=== PATIENT | male | born 1980 | race Two or more races ===

== ENCOUNTER 2025-03-01 00:06 | Inpatient (IN) | payer OTHER ==
[~2025-03-01] VITALS: Ht 172.7 cm; Wt 126.1 kg
--- NOTE | 2025-03-01 01:00 | ED.PDOC ---
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 Patient reports chills but denies any fever. Patient had a bowel movement earlier this day. Denies constipation or diarrhea. Denies any urinary symptoms. Social history: Quit smoking 3 weeks back, has been a smoker for the past 5 years, denies drinking or drug use. Lives with Patient seen and examined, lower abdominal tenderness. CT abdomen shows 7 mm obstructing ureteral calculus, with mild hydronephrosis. Five hundred saline bolus followed by 1 L NS at 100 cc/hour. IM ketorolac injection given. IV Zofran. Chief Complaint: Abdominal Pain Time Seen by MD: 00:24 Allergies: Coded Allergies: No Known Drug Allergy (Verified Allergy, Unknown, 03/01/25) Mode of Arrival: Ambulatory Past Medical History PAST MEDICAL HISTORY: Denies Past Medical History (Other): Hypertension Surgical History: Denies all surgeries Constitutional: reports: chills EENTM: denies: blurred vision, double vision, ear bleeding, ear discharge, ear drainage, ear pain, ear ringing, eye pain, eye redness, hearing loss, mouth pain, mouth swelling, nasal discharge, nose bleeding, nose congestion, nose pain, photophobia, tearing, throat pain, throat swelling, voice changes, others Respiratory: denies: cough, hemoptysis, orthopnea, SOB at rest, shortness of breath, SOB with excertion, stridor, wheezing, others Cardiovascular: denies: chest pain, dizzy spells, diaphoresis, Dyspnea on exertion, edema, irregular heart beat, left arm pain, lightheadedness, palpitations, PND, syncope, others Gastrointestinal: reports: abdominal pain Genitourinary: denies: burning, dysuria, flank pain, frequency, hematuria, incontinence, penile discharge, penile sore, pain, testicle pain, testicle swelling, urgency, others Musculoskeletal: denies: back pain, gout, joint pain, joint swelling, muscle pain, muscle stiffness, neck pain, others Integumetry: denies: bruises, change in color, change in hair/nails, dryness, laceration, lesions, lumps, rash, wounds, others Allergic/Immunocompromised: denies: Difficulty Healing, Frequent Infections, Hives, Itching, others Hematologic/Lymphatic: denies: anemia, blood clots, easy bleeding, easy bruising, swollen glands, others Endocrine: denies: excessive hunger, excessive sweating, excessive thirst, excessive urination, flushing, intolerance to cold, intolerance to heat, unexplained weight gain, unexplained weight loss, others Psychiatric: denies: anxiety, bipolar disorder, depression, hopeless, panic disorder, schizophrenia, sleepless, suicidal, others Physical Exam General Appearance: Moderate Distress, Normal HEENT: Normal ENT Inspection, Pharynx Normal, TMs Normal Neck: Full Range of Motion, Non-Tender, Normal, Normal Inspection Respiratory: Chest Non-Tender, Lungs Clear, No Accessory Muscle Use, No Respiratory Distress, Normal Breath Sounds Cardiovascular: No Edema, No JVD, No Murmur, No Gallop, Normal Peripheral Pulses, Regular Rate/Rhythm Breast Exam: Deferred Gastrointestinal: No Pulsatile Mass, Normal Bowel Sounds, Soft, Suprapubic, Tenderness Genitalia: Deferred Pelvic: Deferred Rectal: Deferred Extremities: No calf tenderness, Normal capillary refill, Normal inspection, Normal range of motion, Non-tender, No pedal edema Musculoskeletal : Apperance: Normal 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 Was a procedure done?: No Differential Dx Considerations may include: Pancreatitis/nephrolithiasis/ureterolithiasis/colitis/appendicitis X-Ray, Labs, Meds, VS Vital Signs Date Time Temp Pulse Resp B/P (MAP) Pulse Ox O2 Delivery O2 Flow Rate FiO2 03/01/25 02:18 Room Air* 0 21 03/01/25 02:13 65 19 170/102 03/01/25 01:55 97.8 66 19 170/102 (124) 97 97.8 03/01/25 00:46 65 03/01/25 00:08 96.0 70 24 111/75 98 96.0 Lab Test 03/01/25 01:50 03/01/25 00:57 Range/Units Urine Color Yellow Yellow Urine Clarity Clear Clear Urine pH 5.5 5.0-9.0 Urine Specific [place] 1.038 H 1.001-1.035 Urine Protein 1+ H Negative Urine Ketones 1+ H Negative Urine Blood 3+ H Negative /uL Urine Nitrite Negative Negative Urine Bilirubin Negative Negative Urine Urobilinogen Normal Negative mg/dL Urine Leukocyte Esterase Negative Negative /uL Urine RBC 32 0 - 3 /hpf Urine Microscopic WBC 2 0-3 /HPF Urine Squamous Epithelial Cells Few <5 /hpf Urine Bacteria None seen None Seen /hpf Urine Mucus Few None Seen Urine Glucose Normal Normal mg/dL Urine Opiates Screen Neg NEGATIVE Urine Fentanyl Screen Neg NEGATIVE Urine Barbiturates Screen Neg NEGATIVE Urine Phencyclidine Screen Neg NEGATIVE Urine Amphetamines Screen Neg NEGATIVE Urine Benzodiazepines Screen Neg NEGATIVE Urine Cocaine Screen Neg NEGATIVE Urine Cannabinoids Screen Pos NEGATIVE White Blood Count 13.9 H 4.4-10.8 10^3/uL Red Blood Count 5.15 4.5-5.90 10^6/uL Hemoglobin 14.6 13.5-17.5 g/dL Hematocrit 43.6 41.0-53.0 % Mean Corpuscular Volume 84.7 80.0-100.0 fL Mean Corpuscular Hemoglobin 28.3 28.0-32.0 pg Mean Corpuscular Hemoglobin Concent 33.4 32.0-36.0 g/dL Red Cell Distribution Width 14.0 11.8-14.3 % Platelet Count 237 140-450 10^3/uL Mean Platelet Volume 8.3 6.9-10.8 fL Neutrophils (%) (Auto) 84.2 H 37.0-80.0 % Lymphocytes (%) (Auto) 9.8 L 10.0-50.0 % Monocytes (%) (Auto) 5.9 0.0-12.0 % Eosinophils (%) (Auto) 0.0 0.0-7.0 % Basophils (%) (Auto) 0.1 0.0-2.0 % Neutrophils # (Auto) 11.7 H 1.6-8.6 10 ^3/uL Lymphocytes # (Auto) 1.4 0.4-5.4 10 ^3/uL Monocytes # (Auto) 0.8 0-1.3 10 ^3/uL Eosinophils # (Auto) 0 0-0.8 10 ^3/uL Basophils # (Auto) 0 0-0.2 10 ^3/uL Nucleated Red Blood Cells 0.0 % Sodium Level 141 136-145 mmol/L Potassium Level 4.1 3.5-5.1 mmol/L Chloride Level 107 98-107 mmol/L Carbon Dioxide Level 22 20-31 mmol/L Anion Gap 12 5-15 Blood Urea Nitrogen 17 9-23 mg/dL Creatinine 1.20 0.700-1.30 mg/dL Glomerular Filtration Rate Calc 77 >90 mL/min BUN/Creatinine Ratio 14.2 10.0-20.0 Serum Glucose 139 H 74-106 mg/dL Hemoglobin A1c 5.7 <5.7 % A1C Lactic Acid Level 1.3 0.4-2.0 mmol/L Calcium Level 9.2 8.7-10.4 mg/dL Phosphorus Level 2.2 L 2.4-5.1 mg/dL Magnesium Level 1.9 1.6-2.6 mg/dL Total Bilirubin 0.3 0.2-1.0 mg/dL Direct Bilirubin < 0.1 <0.3 mg/dL Aspartate Amino Transferase (AST) 28 13-40 U/L Alanine Aminotransferase (ALT) 51 H 7-40 U/L Alkaline Phosphatase 89 46-116 U/L Total Protein 8.2 5.7-8.2 g/dL Albumin 4.9 H 3.2-4.8 g/dL Lipase 45 12-53 U/L Vitamin B12 Level 372 211-911 pg/mL Thyroid Stimulating Hormone (TSH) 1.88 0.55-4.78 uIU/mL Current Medications Medications (Trade) Dose Ordered Sig/Sunny Route Start Time Stop Time Status Last Admin Morphine Sulfate 1 mg ONCE ONCE IM 03/01/25 00:45 03/01/25 00:46 DC 03/01/25 02:13 Sodium Chloride 500 ml @ 500 mls/hr Q1H ONCE IV 03/01/25 00:45 03/01/25 01:44 DC 03/01/25 02:14 Ondansetron HCl (Zofran) 4 mg ONCE ONCE IM 03/01/25 01:00 03/01/25 01:02 DC 03/01/25 02:13 Tamsulosin HCl (Flomax) 0.4 mg ONCE ONCE PO 03/01/25 02:00 03/01/25 02:01 DC 03/01/25 02:14 Sodium Chloride 1,000 ml @ 100 mls/hr Q10H ONCE IV 03/01/25 02:00 03/01/25 04:19 DC 03/01/25 03:02 Time of 1ST Reevaluation: 01:40 Reevaluation 1ST: Unchanged Patient Education/Counseling: Diagnosis, Treatment Family Education/Counseling: Diagnosis, Treatment SEPSIS Sepsis Screen Date sepsis recognized/suspect: Mar 01, 2025 Time Sepsis recognized/suspect: 0008 Recent Procedure: No On Antibiotic Therapy: No Respiratory Rate >20: Yes Heart Rate >90: No Temp<36 C (96.8 F) or >38.3 C: No SBP <90 or MAP <65 mmHG: No New Acute Mental Status Change: No Is the patient on CPAP, BIPAP,: No Physician Orders Ct Ab Pel Wo Con-No Oral Or Iv (03/01/25 00:38) Complete Blood Count (03/01/25 04:00) Basic Metabolic Panel (03/01/25 04:00) Urine Bacterial Culture (03/01/25 02:43) Vital Signs Date Time Temp Pulse Resp B/P (MAP) Pulse Ox O2 Delivery O2 Flow Rate FiO2 03/01/25 02:18 Room Air* 0 21 03/01/25 02:13 65 19 170/102 03/01/25 01:55 97.8 66 19 170/102 (124) 97 97.8 03/01/25 00:46 65 03/01/25 00:08 96.0 70 24 111/75 98 96.0 Laboratory Tests Test 03/01/25 00:57 Lactic Acid Level 1.3 mmol/L (0.4-2.0) White Blood Count 13.9 10^3/uL (4.4-10.8) H Medications Medications Dose Ordered Sig/Sunny Route Start Time Stop Time Status Last Admin Dose Admin Morphine Sulfate 1 mg ONCE ONCE IM 03/01/25 00:45 03/01/25 00:46 DC 03/01/25 02:13 Ondansetron HCl 4 mg ONCE ONCE IM 03/01/25 01:00 03/01/25 01:02 DC 03/01/25 02:13 Sodium Chloride 500 ml @ 500 mls/hr Q1H ONCE IV 03/01/25 00:45 03/01/25 01:44 DC 03/01/25 02:14 Sodium Chloride 1,000 ml @ 100 mls/hr Q10H ONCE IV 03/01/25 02:00 03/01/25 04:19 DC 03/01/25 03:02 Tamsulosin HCl 0.4 mg ONCE ONCE PO 03/01/25 02:00 03/01/25 02:01 DC 03/01/25 02:14 Departure 1 Departure Time of Disposition: 02:00 Impression: Primary Impression: Ureterolithiasis Additional Impression: Intractable abdominal pain Disposition: 30 STILL A PATIENT Condition: Fair Critical Care Note Critical Care Time?: No Stability Stability form required: BALJIT Gutierrez RESIDENT Mar 01, 2025 01:00
--- NOTE | 2025-03-01 01:22 | DVH ---
Exam: CT CT AB PEL WO CON-NO ORAL OR IV History: lower abd pain nausea and vomiting Comparison Study: None Technique: Multidetector spiral CT of the abdomen was performed from lung bases to pubic symphysis. I maging was performed without IV contrast. Axial, coronal and sagittal multiplanar reformats were obta ined from the axial data set by the technologist. Radiation dose : 1. Abdomen/Pelvis: CTDIvol 27.86 mGy, DLP 1531.96 mGy*cm. Findings: Evaluation of solid organs is limited due to lack of intravenous contrast use. Lung Bases: No acute or significant lung base finding. Normal heart size. No pleural or pericardial e ffusion. Liver: The liver is normal in size. No focal lesions. Gallbladder and biliary Tree: Cholelithiasis noted without secondary findings of cholecystitis or odalis iary obstruction. Spleen: Unremarkable Pancreas: The pancreas is grossly normal in appearance. Adrenal Glands: Unremarkable Kidneys: Obstructing mid to distal left ureteric calculus measuring 7 mm resulting in mild hydronephr osis Bladder: Grossly unremarkable for degree of distention. Bowel: The stomach is grossly normal in appearance. Small bowel and colon are normal in caliber and d istribution. The appendix is not visualized; however, no secondary findings of acute appendicitis blayne ntified. Ascites: Absent Lymphadenopathy: No mesenteric, retroperitoneal or periportal lymphadenopathy. Abdominal wall and Mesentery: Unremarkable. Vasculature: The visualized abdominal aorta is normal in size and caliber. Evaluation of abdominal an d pelvic vessels is limited due to lack of intravenous contrast. Pelvic Organs: Unremarkable Musculoskeletal: No aggressive focal bony lesions, acute fractures or dislocation. IMPRESSION: Obstructing mid to distal left ureteris calculus measuring 7 mm resulting in mild hydronephrosis. Radiation optimization: All CT scans at this facility use at least one of these dose optimization latrell hniques: automated exposure control mA and/or kV adjustment per patient size (includes targeted exam s where dose is matched to clinical indication) or iterative reconstruction.
[2025-03-01 01:24] LABS: Hematocrit 43.6 % (41.0-53.0); Hemoglobin 14.6 g/dL (13.5-17.5); Mean Corpuscular Hemoglobin 28.3 pg (28.0-32.0); Mean Corpuscular Volume 84.7 fL (80.0-100.0); Nucleated Red Blood Cells % 0.0 %
[2025-03-01 01:33] LABS: Chloride 107 mmol/L (98-107); Potassium 4.1 mmol/L (3.5-5.1); Sodium 141 mmol/L (136-145)
[2025-03-01 01:34] LABS: Anion Gap 12 (5-15); Carbon Dioxide 22 mmol/L (20-31)
[2025-03-01 01:35] LABS: Calcium 9.2 mg/dL (8.7-10.4)
[2025-03-01 01:40] LABS: BUN/Creatinine Ratio 14.2 (10.0-20.0); Blood Urea Nitrogen 17 mg/dL (9-23); Lipase 45 U/L (12-53)
[2025-03-01 01:42] LABS: Glucose 139 mg/dL (74-106)
[2025-03-01] MEDS: MORPHINE SULFATE INJ 2 MG/ml SYRG IM ONE (02:13)
[2025-03-01] MEDS: ONDANSETRON HCL 4 MG/2 ML VIAL IM ONE (02:13)
[2025-03-01] MEDS: SODIUM CHLORIDE 0.9% 500 ML IV ONE ×2 (02:14→06:23)
[2025-03-01] MEDS: TAMSULOSIN HYDROCHLORIDE 0.4 MG CAP PO ONE (02:14)
[2025-03-01 02:44] LABS: Urine Protein, UAD 1+ (Negative)
[2025-03-01] MEDS: SODIUM CHLORIDE 0.9% 1,000 ML IV ONE (03:02)
[2025-03-01 03:11] LABS: Cannabinoid Screen, Urine Pos (NEGATIVE)
[2025-03-01 03:12] LABS: Alanine Aminotransferase 51 U/L (7-40); Albumin 4.9 g/dL (3.2-4.8); Alkaline Phosphatase 89 U/L (46-116); Bilirubin, Direct < 0.1 mg/dL (<0.3); Magnesium 1.9 mg/dL (1.6-2.6); Total Protein 8.2 g/dL (5.7-8.2)
[2025-03-01 03:12] LABS: Amphetamine Screen, Urine Neg (NEGATIVE); Barbiturate Scree,Urine Neg (NEGATIVE); Benzodiazephine Screen, Urine Neg (NEGATIVE); Cocaine Screen, Urine Neg (NEGATIVE); Opiate Scree,Urine Neg (NEGATIVE); Phencyclidine Screen, Urine Neg (NEGATIVE)
[2025-03-01 03:13] LABS: Bilirubin, Total 0.3 mg/dL (0.2-1.0)
[2025-03-01] MEDS ORDERED: MORPHINE SULFATE INJ 2 MG/ml SYRG IV PRN (03:15)
--- NOTE | 2025-03-01 04:03 | DVHHPRES ---
History of Present Illness Resident Creating Document: SHELDON JOSE History of Present Illness Mr. Odell is a 45-year-old male with prior medical history of hypertension (however has not taken any medication in the last 6 months due to running out), previous UTIs, who presents today to the ED with chief complaint of abdominal pain. The patient states that at 5:00 p.m. he had sudden onset of tight sharp pain in left flank, 10/10 intensity, radiating to lower left quadrant and left testicle, associated with nausea and vomiting, without relieving factors. He denies hematuria, dysuria, urinary frequency, urinary incontinence, diarrhea, fever, chest pain, and palpitations. Due to persistence of abdominal pain the patient's sought medical attention at the emergency department. On evaluation in the ED, the patient was in distress, with stable vitals. Initial labs were significant for WBCs 13.9 with neutrophilia. UA shows hematuria. UDS positive for cannabis. Abdominal CT shows obstructing mid to distal left ureter calculus measuring 7 mm resulting in mild hydronephrosis. The patient was started on IV fluids, tamsulosin, if he antibiotics, and IV pain regimen. He was admitted for further workup and monitoring Cardiovascular: HTN Past Surgical History: None Family History: DM, Hypertension Smoke: Quit (Smoked 1 pack of cigarettes per day for 20 years) ALCOHOL: none Drugs: Marijuana (Smokes 1 joint a day) Lives: with Family Domestic Violence: Neg Review of Systems Review of Systems Constitutional: Denies weight loss, fever and chills. HEENT: Denies changes in vision and hearing. Respiratory: Denies shortness of breath and cough Cardiovascular: Denies chest discomfort or palpitations GI: Refers flank and LLQ pain, Denies diarrhea : Denies dysuria and urinary frequency, denies hematuria Musculoskeletal: Denies symptoms Skin: Denies rash and pruritus. Neurological: denies dizziness headache vision or hearing problems Allergies: Coded Allergies: No Known Drug Allergy (Verified Allergy, Unknown, 03/01/25) Medications Current Medications Medications Dose Ordered Sig/Sunny Route Start Time Stop Time Status Last Admin Dose Admin Enoxaparin Sodium 40 mg DAILY SC 03/01/25 10:00 Morphine Sulfate 2 mg Q4HPRN PRN IV 03/01/25 03:15 Tamsulosin HCl 0.4 mg QPM PO 03/01/25 18:00 Ceftriaxone Sodium 50 ml @ 100 mls/hr DAILY@09 IV 03/02/25 09:00 Pantoprazole Sodium 40 mg DAILY IV 03/02/25 10:00 Exam Vital Signs Vital Signs Date Time Temp Pulse Resp B/P (MAP) Pulse Ox O2 Delivery O2 Flow Rate FiO2 03/01/25 02:18 Room Air* 0 21 03/01/25 02:13 65 19 170/102 03/01/25 01:55 97.8 97 97.8 Exam Patient lying in bed, in mild acute distress General: Lucid, afebrile, mucosae are moist Cardiovascular: Normal S1 and S2. No murmurs, gallops or rubs Respiratory: Normal ventilation mechanics. Clear lung sounds on auscultation Abdomen: Soft, mild tenderness on superficial palpation in left lower quadrant rest of abdomen nontender, no organomegaly, normal bowel sounds. MSK/skin: Mobilizes 4 limbs. Skin is dry and warm : Negative CVA tenderness Neurological: Oriented in 3 spheres. No motor no sensitive deficits. Pupils are isocoric and reactive Labs/Xrays Labs Test 03/01/25 01:50 03/01/25 00:57 Range/Units Urine Color Yellow Yellow Urine Clarity Clear Clear Urine pH 5.5 5.0-9.0 Urine Specific [place] 1.038 H 1.001-1.035 Urine Protein 1+ H Negative Urine Ketones 1+ H Negative Urine Blood 3+ H Negative /uL Urine Nitrite Negative Negative Urine Bilirubin Negative Negative Urine Urobilinogen Normal Negative mg/dL Urine Leukocyte Esterase Negative Negative /uL Urine RBC 32 0 - 3 /hpf Urine Microscopic WBC 2 0-3 /HPF Urine Squamous Epithelial Cells Few <5 /hpf Urine Bacteria None seen None Seen /hpf Urine Mucus Few None Seen Urine Glucose Normal Normal mg/dL Urine Opiates Screen Neg NEGATIVE Urine Fentanyl Screen Neg NEGATIVE Urine Barbiturates Screen Neg NEGATIVE Urine Phencyclidine Screen Neg NEGATIVE Urine Amphetamines Screen Neg NEGATIVE Urine Benzodiazepines Screen Neg NEGATIVE Urine Cocaine Screen Neg NEGATIVE Urine Cannabinoids Screen Pos NEGATIVE White Blood Count 13.9 H 4.4-10.8 10^3/uL Red Blood Count 5.15 4.5-5.90 10^6/uL Hemoglobin 14.6 13.5-17.5 g/dL Hematocrit 43.6 41.0-53.0 % Mean Corpuscular Volume 84.7 80.0-100.0 fL Mean Corpuscular Hemoglobin 28.3 28.0-32.0 pg Mean Corpuscular Hemoglobin Concent 33.4 32.0-36.0 g/dL Red Cell Distribution Width 14.0 11.8-14.3 % Platelet Count 237 140-450 10^3/uL Mean Platelet Volume 8.3 6.9-10.8 fL Neutrophils (%) (Auto) 84.2 H 37.0-80.0 % Lymphocytes (%) (Auto) 9.8 L 10.0-50.0 % Monocytes (%) (Auto) 5.9 0.0-12.0 % Eosinophils (%) (Auto) 0.0 0.0-7.0 % Basophils (%) (Auto) 0.1 0.0-2.0 % Neutrophils # (Auto) 11.7 H 1.6-8.6 10 ^3/uL Lymphocytes # (Auto) 1.4 0.4-5.4 10 ^3/uL Monocytes # (Auto) 0.8 0-1.3 10 ^3/uL Eosinophils # (Auto) 0 0-0.8 10 ^3/uL Basophils # (Auto) 0 0-0.2 10 ^3/uL Nucleated Red Blood Cells 0.0 % Sodium Level 141 136-145 mmol/L Potassium Level 4.1 3.5-5.1 mmol/L Chloride Level 107 98-107 mmol/L Carbon Dioxide Level 22 20-31 mmol/L Anion Gap 12 5-15 Blood Urea Nitrogen 17 9-23 mg/dL Creatinine 1.20 0.700-1.30 mg/dL Glomerular Filtration Rate Calc 77 >90 mL/min BUN/Creatinine Ratio 14.2 10.0-20.0 Serum Glucose 139 H 74-106 mg/dL Hemoglobin A1c 5.7 <5.7 % A1C Lactic Acid Level 1.3 0.4-2.0 mmol/L Calcium Level 9.2 8.7-10.4 mg/dL Phosphorus Level 2.2 L 2.4-5.1 mg/dL Magnesium Level 1.9 1.6-2.6 mg/dL Total Bilirubin 0.3 0.2-1.0 mg/dL Direct Bilirubin < 0.1 <0.3 mg/dL Aspartate Amino Transferase (AST) 28 13-40 U/L Alanine Aminotransferase (ALT) 51 H 7-40 U/L Alkaline Phosphatase 89 46-116 U/L Total Protein 8.2 5.7-8.2 g/dL Albumin 4.9 H 3.2-4.8 g/dL Lipase 45 12-53 U/L Vitamin B12 Level 372 211-911 pg/mL Thyroid Stimulating Hormone (TSH) 1.88 0.55-4.78 uIU/mL SEPSIS Sepsis Screen Date sepsis recognized/suspect: Mar 01, 2025 Time Sepsis recognized/suspect: 000 Recent Procedure: No On Antibiotic Therapy: No Respiratory Rate >20: Yes Heart Rate >90: No Temp<36 C (96.8 F) or >38.3 C: No SBP <90 or MAP <65 mmHG: No New Acute Mental Status Change: No Is the patient on CPAP, BIPAP,: No Physician Orders Ct Ab Pel Wo Con-No Oral Or Iv (03/01/25 00:38) Electrocardigram (03/01/25 00:58) Sodium Chloride 0.9% (03/01/25 02:00) Complete Blood Count (03/01/25 04:00) Basic Metabolic Panel (03/01/25 04:00) Urine Bacterial Culture (03/01/25 02:43) Admit (03/01/25 03:01) Allergies (03/01/25 03:01) Code Status (03/01/25 03:01) Enoxaparin Sodium (Lovenox) (03/01/25 10:00) Npo (Nothing By Mouth) Diet (03/01/25 Breakfast) Condition: Stable (03/01/25 03:01) Morphine Sulfate Injection (03/01/25 03:15) Stat Ekg For Chest Pain (03/01/25 03:01) Notify Md Of Changes From Base (03/01/25 03:01) Emergency Dysrhythmia Protocol (03/01/25 03:01) Rhythm Strips Once Every Shift (03/01/25 03:01) Tamsulosin Hydrochloride (Flomax) (03/01/25 18:00) Ceftriaxone 1gm/50ml (Rocephin) (03/02/25 09:00) * Urology Consult (03/01/25 03:15) Sodium Chloride 0.9% (03/01/25 03:15) Pantoprazole (Protonix) (03/02/25 10:00) Vital Signs Date Time Temp Pulse Resp B/P (MAP) Pulse Ox O2 Delivery O2 Flow Rate FiO2 03/01/25 02:18 Room Air* 0 21 03/01/25 02:13 65 19 170/102 03/01/25 01:55 97.8 66 19 170/102 (124) 97 97.8 03/01/25 00:46 65 03/01/25 00:08 96.0 70 24 111/75 98 96.0 Laboratory Tests Test 03/01/25 00:57 Lactic Acid Level 1.3 mmol/L (0.4-2.0) White Blood Count 13.9 10^3/uL (4.4-10.8) H Medications Medications Dose Ordered Sig/Sunny Route Start Time Stop Time Status Last Admin Dose Admin Morphine Sulfate 1 mg ONCE ONCE IM 03/01/25 00:45 03/01/25 00:46 DC 03/01/25 02:13 1 MG Ondansetron HCl 4 mg ONCE ONCE IM 03/01/25 01:00 03/01/25 01:02 DC 03/01/25 02:13 4 MG Sodium Chloride 500 ml @ 500 mls/hr Q1H ONCE IV 03/01/25 00:45 03/01/25 01:44 DC 03/01/25 02:14 500 MLS/HR Sodium Chloride 1,000 ml @ 100 mls/hr Q10H ONCE IV 03/01/25 02:00 03/01/25 11:59 03/01/25 03:02 100 MLS/HR Tamsulosin HCl 0.4 mg ONCE ONCE PO 03/01/25 02:00 03/01/25 02:01 DC 03/01/25 02:14 0.4 MG Assessment/Plan Assessment/Plan Assessment and Plan: Sepsis secondary to ureterolithiasis -CT abdomen: Obstructing mid to distal left ureter calculus measuring 7 mm resulting in mild hydronephrosis -NS 500 cc bolus x 2, NS 100 cc bolus x 1, NS 100 cc/hour maintenance -Ceftriaxone 1 g IV daily -Urine culture has been ordered -Blood culture has been ordered -Flomax 0.4 mg p.o. q.p.m. -Morphine 1 mg IM once -Morphine 2 mg IV Q 4 hours p.r.n. -Zofran 4 mg IM once -Urology consult has been placed -Patient is NPO pending Urology evaluation Mild hydronephrosis -CT abdomen: Obstructing mid to distal left ureter calculus measuring 7 mm resulting in mild hydronephrosis Hypertension -Monitor blood pressure Morbid obesity, BMI 43.1 kg/m2 -I have counseled the patient on the importance of maintaining a balanced diet, weight loss, and maintaining regular moderate exercise with intolerance Marijuana use -I have counseled the patient on the importance of complete cessation of drug use for over 12 minute Diet: NPO DVT prophylaxis: Enoxaparin 40 mg sc daily GI prophylaxis: Protonix 40 mg IV daily Case discussed with Dr. Coello Goals of care discussed with the patient and his for over 28 minutes. FULL CODE. Plan discussed with: Patient, Spouse, Other (Nurses) My Orders Orders - SHELDON JOSE Procedure Category Date Status Time Complete Blood Count LAB 03/01/25 Logged 04:00 Basic Metabolic Panel LAB 03/01/25 Logged 04:00 Urine Bacterial EDI 03/01/25 In Process Culture 02:43 Admit ADMIT 03/01/25 Transmitted 03:01 Allergies ISABEL 03/01/25 In Process 03:01 Code Status CODE 03/01/25 Transmitted 03:01 Enoxaparin Sodium PHA 03/01/25 In Process (Lovenox) 10:00 Npo (Nothing By DIET 03/01/25 Transmitted Mouth) Diet Breakfast Condition: Stable ISABEL 03/01/25 In Process 03:01 Morphine Sulfate PHA 03/01/25 In Process Injection 03:15 Stat Ekg For Chest ISABEL 03/01/25 In Process Pain 03:01 Notify Of Changes ISABEL 03/01/25 In Process From Base 03:01 Emergency Dysrhythmia ISABEL 03/01/25 In Process Protocol 03:01 Rhythm Strips Once ISABEL 03/01/25 In Process Every Shift 03:01 Tamsulosin PHA 03/01/25 In Process Hydrochloride (Flomax) 18:00 Ceftriaxone 1gm/50ml PHA 03/02/25 In Process (Rocephin) 09:00 * Urology Consult CONS 03/01/25 Transmitted 03:15 Sodium Chloride 0.9% PHA 03/01/25 In Process 03:15 Pantoprazole PHA 03/02/25 In Process (Protonix) 10:00 Date of Service: Mar 01, 2025 Billing Provider: MARCELO COELLO MD Common Visit Codes: [id number] INP/OBS CARE (HIGH) Secondary Visit Codes: [id number] CARE PLAN 30 MINUTES SHELDON JOSE RESIDENT Mar 01, 2025 04:03 HAMMAD CAMARENA RESIDENT Mar 01, 2025 08:06
[2025-03-01] MEDS: PANTOPRAZOLE 40 MG/10 ML VIAL INJ IV ONE (04:05)
[2025-03-01 04:33] VITALS: BP 140/70; PULSE 60; RESP 17; TEMP 98; O2SAT 98
[2025-03-01 05:00] VITALS: BP 140/70; PULSE 60; RESP 17; TEMP 98; O2SAT 98
--- NOTE | 2025-03-01 05:38 | ECG ---
[facility] Test Date: 2025-03-01 Test Time: 00:46:26 Pat Name: Garth Odell Department: Room: 0221 B Gender: M Stunner: GENNY : 1980 Requested By: BALJIT TROY Order Number: [id number] Reading MD: Raheem Kincaid Measurements Intervals [place] Rate: 65 P: -68 CO: 115 QRS: -53 QRSD: 115 T: 15 QT: 416 QTc: 433 Interpretive Statements Sinus or ectopic atrial rhythm Borderline short CO interval Incomplete RBBB and LAFB Electronically Signed On 03-08-2025 21:40:19 PDT by Raheem Kincaid Please click the below link to view image of tracing.
[2025-03-01 07:02] LABS: Hematocrit 41.5 % (41.0-53.0); Hemoglobin 13.9 g/dL (13.5-17.5); Mean Corpuscular Hemoglobin 28.6 pg (28.0-32.0); Mean Corpuscular Volume 85.3 fL (80.0-100.0); Nucleated Red Blood Cells % 0.0 %
[2025-03-01 07:13] LABS: Anion Gap 11 (5-15)
[2025-03-01 07:15] LABS: Calcium 8.8 mg/dL (8.7-10.4)
[2025-03-01 07:20] LABS: BUN/Creatinine Ratio 14.9 (10.0-20.0); Blood Urea Nitrogen 14 mg/dL (9-23)
[2025-03-01 07:21] LABS: Carbon Dioxide 22 mmol/L (20-31); Chloride 107 mmol/L (98-107); Glucose 122 mg/dL (74-106); Potassium 4.3 mmol/L (3.5-5.1); Sodium 140 mmol/L (136-145)
[2025-03-01] MEDS: SODIUM CHLORIDE 0.9% 1,000 ML IV SCH (08:30)
[2025-03-01 09:00] VITALS: BP 116/70; PULSE 62; RESP 17; TEMP 98; O2SAT 97
[2025-03-01] MEDS: ENOXAPARIN SOD 40 MG/0.4 ML SYRINGE SC SCH (09:34)
[2025-03-01 13:00] VITALS: BP 142/74; PULSE 66; RESP 17; TEMP 98.1; O2SAT 99
[2025-03-01] MEDS ORDERED: TAMS0.4C39 PO (13:32)
--- NOTE | 2025-03-01 14:05 | DVHINCON2 ---
Date of service: Mar 01, 2025 Referring Physician Hospitalist Reason for Consultation ureteral stone History of Present Illness Home Meds Active Scripts Tamsulosin Hcl (Tamsulosin Hcl) 0.4 Mg Cap, 0.4 MG PO QPM for 7 Days, #7 CAP 0 Refills Prov:SKIP JUAN RESIDENT 03/01/25 Past Medical History Patient Family History: FH: cancer G8 FATHER, Onset:Unknown H&P Exam Vital Signs Vital Signs Date Time Temp Pulse Resp B/P (MAP) Pulse Ox O2 Delivery O2 Flow Rate FiO2 03/01/25 09:00 98.0 62 17 116/70 (85) 97 98.0 03/01/25 04:33 Room Air* 0 21 Labs/Xrays Labs Test 03/01/25 05:45 03/01/25 01:50 03/01/25 00:57 Range/Units White Blood Count 10.0 # 4.4-10.8 10^3/uL Red Blood Count 4.87 4.5-5.90 10^6/uL Hemoglobin 13.9 13.5-17.5 g/dL Hematocrit 41.5 41.0-53.0 % Mean Corpuscular Volume 85.3 80.0-100.0 fL Mean Corpuscular Hemoglobin 28.6 28.0-32.0 pg Mean Corpuscular Hemoglobin Concent 33.5 32.0-36.0 g/dL Red Cell Distribution Width 13.9 11.8-14.3 % Platelet Count 211 140-450 10^3/uL Mean Platelet Volume 8.6 6.9-10.8 fL Neutrophils (%) (Auto) 83.9 H 37.0-80.0 % Lymphocytes (%) (Auto) 10.8 10.0-50.0 % Monocytes (%) (Auto) 5.1 0.0-12.0 % Eosinophils (%) (Auto) 0.0 0.0-7.0 % Basophils (%) (Auto) 0.2 0.0-2.0 % Neutrophils # (Auto) 8.4 1.6-8.6 10 ^3/uL Lymphocytes # (Auto) 1.1 0.4-5.4 10 ^3/uL Monocytes # (Auto) 0.5 0-1.3 10 ^3/uL Eosinophils # (Auto) 0 0-0.8 10 ^3/uL Basophils # (Auto) 0 0-0.2 10 ^3/uL Nucleated Red Blood Cells 0.0 % Sodium Level 140 136-145 mmol/L Potassium Level 4.3 3.5-5.1 mmol/L Chloride Level 107 98-107 mmol/L Carbon Dioxide Level 22 20-31 mmol/L Anion Gap 11 5-15 Blood Urea Nitrogen 14 9-23 mg/dL Creatinine 0.94 0.700-1.30 mg/dL Glomerular Filtration Rate Calc 103 >90 mL/min BUN/Creatinine Ratio 14.9 10.0-20.0 Serum Glucose 122 H 74-106 mg/dL Calcium Level 8.8 8.7-10.4 mg/dL Urine Color Yellow Yellow Urine Clarity Clear Clear Urine pH 5.5 5.0-9.0 Urine Specific [place] 1.038 H 1.001-1.035 Urine Protein 1+ H Negative Urine Ketones 1+ H Negative Urine Blood 3+ H Negative /uL Urine Nitrite Negative Negative Urine Bilirubin Negative Negative Urine Urobilinogen Normal Negative mg/dL Urine Leukocyte Esterase Negative Negative /uL Urine RBC 32 0 - 3 /hpf Urine Microscopic WBC 2 0-3 /HPF Urine Squamous Epithelial Cells Few <5 /hpf Urine Bacteria None seen None Seen /hpf Urine Mucus Few None Seen Urine Glucose Normal Normal mg/dL Urine Opiates Screen Neg NEGATIVE Urine Fentanyl Screen Neg NEGATIVE Urine Barbiturates Screen Neg NEGATIVE Urine Phencyclidine Screen Neg NEGATIVE Urine Amphetamines Screen Neg NEGATIVE Urine Benzodiazepines Screen Neg NEGATIVE Urine Cocaine Screen Neg NEGATIVE Urine Cannabinoids Screen Pos NEGATIVE Hemoglobin A1c 5.7 <5.7 % A1C Lactic Acid Level 1.3 0.4-2.0 mmol/L Phosphorus Level 2.2 L 2.4-5.1 mg/dL Magnesium Level 1.9 1.6-2.6 mg/dL Total Bilirubin 0.3 0.2-1.0 mg/dL Direct Bilirubin < 0.1 <0.3 mg/dL Aspartate Amino Transferase (AST) 28 13-40 U/L Alanine Aminotransferase (ALT) 51 H 7-40 U/L Alkaline Phosphatase 89 46-116 U/L Total Protein 8.2 5.7-8.2 g/dL Albumin 4.9 H 3.2-4.8 g/dL Lipase 45 12-53 U/L Vitamin B12 Level 372 211-911 pg/mL Thyroid Stimulating Hormone (TSH) 1.88 0.55-4.78 uIU/mL WANDA HOLBROOK NP Mar 01, 2025 14:05
--- NOTE | 2025-03-01 15:24 | DVHDSRES ---
Discharge Summary Date of Admission Resident Creating Document: SHELDON JOSE RESIDENT Mar 01, 2025 at 03:01 Date of Discharge: Mar 01, 2025 Admitting Diagnosis abdominal pain Labs/Diagnostic Data: Laboratory Results Test 03/01/25 05:45 03/01/25 01:50 03/01/25 00:57 White Blood Count 10.0 10^3/uL (4.4-10.8) Red Blood Count 4.87 10^6/uL (4.5-5.90) Hemoglobin 13.9 g/dL (13.5-17.5) Hematocrit 41.5 % (41.0-53.0) Mean Corpuscular Volume 85.3 fL (80.0-100.0) Mean Corpuscular Hemoglobin 28.6 pg (28.0-32.0) Mean Corpuscular Hemoglobin Concent 33.5 g/dL (32.0-36.0) Red Cell Distribution Width 13.9 % (11.8-14.3) Platelet Count 211 10^3/uL (140-450) Mean Platelet Volume 8.6 fL (6.9-10.8) Neutrophils (%) (Auto) 83.9 % (37.0-80.0) Lymphocytes (%) (Auto) 10.8 % (10.0-50.0) Monocytes (%) (Auto) 5.1 % (0.0-12.0) Eosinophils (%) (Auto) 0.0 % (0.0-7.0) Basophils (%) (Auto) 0.2 % (0.0-2.0) Neutrophils # (Auto) 8.4 10 ^3/uL (1.6-8.6) Lymphocytes # (Auto) 1.1 10 ^3/uL (0.4-5.4) Monocytes # (Auto) 0.5 10 ^3/uL (0-1.3) Eosinophils # (Auto) 0 10 ^3/uL (0-0.8) Basophils # (Auto) 0 10 ^3/uL (0-0.2) Nucleated Red Blood Cells 0.0 % Sodium Level 140 mmol/L (136-145) Potassium Level 4.3 mmol/L (3.5-5.1) Chloride Level 107 mmol/L (98-107) Carbon Dioxide Level 22 mmol/L (20-31) Anion Gap 11 (5-15) Blood Urea Nitrogen 14 mg/dL (9-23) Creatinine 0.94 mg/dL (0.700-1.30) Glomerular Filtration Rate Calc 103 mL/min (>90) BUN/Creatinine Ratio 14.9 (10.0-20.0) Serum Glucose 122 mg/dL (74-106) Calcium Level 8.8 mg/dL (8.7-10.4) Urine Color Yellow (Yellow) Urine Clarity Clear (Clear) Urine pH 5.5 (5.0-9.0) Urine Specific [place] 1.038 (1.001-1.035) Urine Protein 1+ (Negative) Urine Ketones 1+ (Negative) Urine Blood 3+ /uL (Negative) Urine Nitrite Negative (Negative) Urine Bilirubin Negative (Negative) Urine Urobilinogen Normal mg/dL (Negative) Urine Leukocyte Esterase Negative /uL (Negative) Urine RBC 32 /hpf (0 - 3) Urine Microscopic WBC 2 /HPF (0-3) Urine Squamous Epithelial Cells Few /hpf (<5) Urine Bacteria None seen /hpf (None Seen) Urine Mucus Few (None Seen) Urine Glucose Normal mg/dL (Normal) Urine Opiates Screen Neg (NEGATIVE) Urine Fentanyl Screen Neg (NEGATIVE) Urine Barbiturates Screen Neg (NEGATIVE) Urine Phencyclidine Screen Neg (NEGATIVE) Urine Amphetamines Screen Neg (NEGATIVE) Urine Benzodiazepines Screen Neg (NEGATIVE) Urine Cocaine Screen Neg (NEGATIVE) Urine Cannabinoids Screen Pos (NEGATIVE) Hemoglobin A1c 5.7 % A1C (<5.7) Lactic Acid Level 1.3 mmol/L (0.4-2.0) Phosphorus Level 2.2 mg/dL (2.4-5.1) Magnesium Level 1.9 mg/dL (1.6-2.6) Total Bilirubin 0.3 mg/dL (0.2-1.0) Direct Bilirubin < 0.1 mg/dL (<0.3) Aspartate Amino Transferase (AST) 28 U/L (13-40) Alanine Aminotransferase (ALT) 51 U/L (7-40) Alkaline Phosphatase 89 U/L (46-116) Total Protein 8.2 g/dL (5.7-8.2) Albumin 4.9 g/dL (3.2-4.8) Lipase 45 U/L (12-53) Vitamin B12 Level 372 pg/mL (211-911) Thyroid Stimulating Hormone (TSH) 1.88 uIU/mL (0.55-4.78) Other Laboratory Tests 03/01/25 05:45 Brief Hx & Hospital Course: Mr. Odell is a 45-year-old male with a history of hypertension (not on medication for the past 6 months) and prior urinary tract infections who presented to the Emergency Department with sudden onset of severe left flank pain rated 10/10, radiating to the lower left quadrant and left testicle, accompanied by nausea and vomiting. He denied hematuria, dysuria, urinary frequency, fever, chest pain, and palpitations. On arrival, he was in visible distress but hemodynamically stable. Laboratory evaluation revealed leukocytosis (WBC 13.9) with neutrophilia, and urinalysis showed hematuria. Urine drug screen was positive for cannabis. CT abdomen demonstrated a 7 mm obstructing calculus in the mid to distal left ureter with mild hydronephrosis. The patient was diagnosed with sepsis secondary to ureterolithiasis and admitted for further management. He was started on IV fluids (normal saline boluses and maintenance), ceftriaxone 1 g IV daily, and Flomax 0.4 mg PO nightly. Pain control was achieved with morphine (IM and IV) and Zofran for nausea. A urology consult was placed, and the patient was kept NPO pending evaluation. Additional diagnoses included morbid obesity (BMI 43.1), hypertension (monitored during admission), and marijuana use (daily joint), for which counseling was provided regarding cessation and lifestyle modifications. Supportive care included DVT prophylaxis with enoxaparin 40 mg SC daily and GI prophylaxis with Protonix 40 mg IV daily. Discharge instructions were reviewed thoroughly, including medication reconciliation and follow-up with primary care. The patient verbalized understanding, was discharged in stable condition, and left the facility via wheelchair accompanied by staff and family, with no signs of distress at departure. Operations or Procedures PATIENT: Garth Odell ACCT: [id number] UNIT: [id number] : 1980 LOC: ER ROOM / BED: / AGE / SEX: 45 / M ADM STATUS: REG ER SERVICE [id number] ORDERING PHYSICIAN: BALJIT TROY RESIDENT PROCEDURE(s): ABPL - CT AB PEL WO CON-NO ORAL OR IV REASON: lower abd pain nausea and vomiting ORDER NUMBER(s): [id number], ACCESSION NUMBER(s): [id number] Exam: CT CT AB PEL WO CON-NO ORAL OR IV History: lower abd pain nausea and vomiting Comparison Study: None Technique: Multidetector spiral CT of the abdomen was performed from lung bases to pubic symphysis. Imaging was performed without IV contrast. Axial, coronal and sagittal multiplanar reformats were obtained from the axial data set by the technologist. Radiation dose : 1. Abdomen/Pelvis: CTDIvol 27.86 mGy, DLP 1531.96 mGy*cm. Findings: Evaluation of solid organs is limited due to lack of intravenous contrast use. Lung Bases: No acute or significant lung base finding. Normal heart size. No pleural or pericardial effusion. Liver: The liver is normal in size. No focal lesions. Gallbladder and biliary Tree: Cholelithiasis noted without secondary findings of cholecystitis or biliary obstruction. Spleen: Unremarkable Pancreas: The pancreas is grossly normal in appearance. Adrenal Glands: Unremarkable Kidneys: Obstructing mid to distal left ureteric calculus measuring 7 mm resulting in mild hydronephrosis Bladder: Grossly unremarkable for degree of distention. Bowel: The stomach is grossly normal in appearance. Small bowel and colon are normal in caliber and distribution. The appendix is not visualized; however, no secondary findings of acute appendicitis identified. Ascites: Absent Lymphadenopathy: No mesenteric, retroperitoneal or periportal lymphadenopathy. Abdominal wall and Mesentery: Unremarkable. Vasculature: The visualized abdominal aorta is normal in size and caliber. Evaluation of abdominal and pelvic vessels is limited due to lack of intravenous contrast. Pelvic Organs: Unremarkable Musculoskeletal: No aggressive focal bony lesions, acute fractures or dislocation. IMPRESSION: Obstructing mid to distal left ureteris calculus measuring 7 mm resulting in mild hydronephrosis. Radiation optimization: All CT scans at this facility use at least one of these dose optimization techniques: automated exposure control mA and/or kV adjustment per patient size (includes targeted exams where dose is matched to clinical indication) or iterative reconstruction. PATIENT: Garth Odell ACCT: [id number] : 1980 LOC: CENTRAL ROOM / BED: [address] [place] [address] AGE / SEX: 45 / M ADM STATUS: ADM IN SERVICE UNIT: [id number] ORDERING PHYSICIAN: BALJIT TROY RESIDENT PROCEDURE(s): EKG - ELECTROCARDIGRAM ORDER NUMBER(s): [id number], ACCESSION NUMBER(s): [id number] [facility] Test Date: 2025-03-01 Test Time: 00:46:26 Pat Name: Garth Odell Department: Room: [facility] Gender: M Structural Analyst: GENNY : 1980 Requested By: BALJIT TROY Order Number: [id number] Reading MD: Measurements Intervals [place] Rate: 65 P: -68 RI: 115 QRS: -53 QRSD: 115 T: 15 QT: 416 QTc: 433 Interpretive Statements Sinus or ectopic atrial rhythm Borderline short RI interval Incomplete RBBB and LAFB Please click the below link to view image of tracing. DICTATED BY: DICTATED DATE/TIME:03/01/2545 Condition at Discharge: Stable Final Diagnosis/Problems List ureterolithiasis, left ureter Mild hydronephrosis Hypertensive heart disease, unknown HF Morbid obesity, BMI 43.1 kg/m2 Marijuana use Discharge Disposition: Home Discharge Instruct/Medications Diet: Regular Diet comment: drink plenty of fluids Activity: No Restrictions, As Tolerated Follow Up/Referral: Follow up with the pcp in one week follow up in the discharge clinic in one week Medications: tamsulosin 0.4mg daily in the evening for 7 days take ibuprofen for pain as needed Scheduled Tamsulosin Hcl (Tamsulosin Hcl), 0.4 MG PO QPM Valsartan (Valsartan), 160 MG PO DAILY Discharge Statement: "Patient was advised to return to the ER or call 911 if any headaches, dizziness, shortness of breath, chest pain, abdominal pain, bleeding, fevers, or worsening of medical condition. Patient was counseled about treatment plan, medications, possible side effects, patientverbalized understanding. All questions were answered to the best of my ability. This discharge took greater then 30 minutes in planning, reviewing documentation, counseling the patient, and discussing with other team members." ASSESSMENT ASSESSMENT Assessment ureterolithiasis, left ureter Mild hydronephrosis Hypertensive heart disease, unknown HF Morbid obesity, BMI 43.1 kg/m2 Marijuana use Date of Service: Mar 01, 2025 Billing Provider: KAY PETTY MD Common Visit Codes: [id number] INP/OBS CARE(HIGH) Secondary Visit Codes: [id number] CARE PLAN 30 MINUTES RANDEE PRAKASH RESIDENT Mar 01, 2025 15:24 KAY PETTY MD Mar 03, 2025 00:25
[2025-03-01 15:40] VITALS: TEMP 36.7
[2025-03-01] MEDS ORDERED: VALS1TAB58 PO (16:19)
[2025-03-01] MEDS ORDERED: TAMSULOSIN HYDROCHLORIDE 0.4 MG CAP PO SCH (18:00)
[2025-03-02] MEDS ORDERED: PANTOPRAZOLE 40 MG/10 ML VIAL INJ IV SCH (10:00)
== END 2025-03-01 16:24 | disposition home or self-care (01) | DRG 465 ==
LOC: ER 00:06 → OVERFLOW 03:01 → CENTRAL 03:41
PROVIDERS: ADMIT Internal Medicine Geriatric Medicine; ATTEND Internal Medicine Geriatric Medicine
DX: N13.2 Hydronephrosis with renal and ureteral calculous obstruction (principal); E66.01 Morbid (severe) obesity due to excess calories; Z68.41 Body mass index [BMI] 40.0-44.9, adult; I11.9 Hypertensive heart disease without heart failure; F12.90 Cannabis use, unspecified, uncomplicated; Z87.891 Personal history of nicotine dependence; Z83.3 Family history of diabetes mellitus; Z82.49 Family history of ischemic heart disease and other diseases of the circulatory system
CPT/HCPCS: 36415; 74176; 80048; 80076; 80307; 81001; 82607; 83036; 83605; 83690; 83735; 84100; 84443; 85025; 87040; 87086; 93005; 96361; 96365; 96367; 96368; 96372; G0378; J2405; J2470

== ENCOUNTER 2025-05-23 00:11 | Inpatient (IN) | payer OTHER ==
[~2025-05-23] VITALS: Ht 172.7 cm; Wt 114.7 kg
[~2025-05-23 00:11] MED LIST: TAMS0.4C39 PO; VALS1TAB58 PO
[2025-05-23 00:55] LABS: Hematocrit 46.5 % (41.0-53.0); Hemoglobin 15.5 g/dL (13.5-17.5); Mean Corpuscular Hemoglobin 28.7 pg (28.0-32.0); Mean Corpuscular Volume 85.8 fL (80.0-100.0); Nucleated Red Blood Cells % 0.0 %
--- NOTE | 2025-05-23 00:58 | DVH ---
EXAM: CT CT AB PEL WO CON-NO ORAL OR IV History: flank pain Comparison Study: CT CT AB PEL WO CON-NO ORAL OR IV on DOS: 03/01/25 TECHNIQUE: Multidetector spiral CT of the abdomen was performed from lung bases to pubic symphysis. Imaging was performed without IV contrast. Axial, coronal and sagittal multiplanar reformats were obtained from the axial data set by the technologist. Radiation Dose : 1. Abdomen/Pelvis: CTDIvol 25.61 mGy, DLP 1460.12 mGy*cm. FINDINGS: Evaluation of solid organs is limited due to lack of intravenous contrast use. Lung Bases: No acute or significant lung base finding. Normal heart size. No pleural or pericardial effusion. Liver: The liver is normal in size. No focal lesions. Gallbladder and Biliary Tree: Gallbladder is surgically absent. Spleen: Unremarkable Pancreas: The pancreas is grossly normal in appearance. Adrenal Glands: Unremarkable Kidneys: Obstructing distal left ureteric calculus measuring 7 mm resulting in mild hydronephrosis. Bladder: Grossly unremarkable for degree of distention. Bowel: The stomach is grossly normal in appearance. Small bowel and colon are normal in caliber and distribution. The appendix is not visualized; however, no secondary findings of acute appendicitis identified. Ascites: Absent Lymphadenopathy: No mesenteric, retroperitoneal or periportal lymphadenopathy. Abdominal Wall and Mesentery: Unremarkable. Vasculature: The visualized abdominal aorta is normal in size and caliber. Evaluation of abdominal and pelvic vessels is limited due to lack of intravenous contrast. Pelvic Organs: Unremarkable Musculoskeletal: No aggressive focal bony lesions, acute fractures or dislocation. IMPRESSION: Obstructing distal left ureteric calculus measuring 7 mm resulting in mild hydronephrosis. Radiation optimization: All CT scans at this facility use at least one of these dose optimization techniques: automated exposure control mA and/or kV adjustment per patient size (includes targeted exams where dose is matched to clinical indication) or iterative reconstruction.
--- NOTE | 2025-05-23 01:15 | ED.PDOC ---
General HPI Comments panda HPI: Poor Historian. 45-year-old male presents to emergency depart for evaluation of the left flank pain radiating to the left abdomen and suprapubic area that started at 5:00 p.m. today with the associated nausea and vomiting. Patient states that these are similar symptoms to previous kidney stone attacks. Denies any other acute symptoms. Patient appears to be in moderate distress. Denies any other symptoms. Past Medical History: Kidney stones, hypertension Past Surgical History: Oral surgery as REVIEW OF SYSTEMS: CONSTITUTIONAL: Denies acute: fever, diaphoresis, chills, generalized weakness. HEAD: Denies acute: headache, photophobia Eyes: Denies acute: Double vision, vision loss, eye pain, eye discharge. EARS: Denies acute: tinnitus, hearing loss, ear discharge, ear pain, THROAT: Denies acute: sore throat, swelling, difficulty swallowing , pain with swallowing, change in voice. NECK: Denies acute: neck pain, neck swelling, stiff neck. HEART: Denies acute : chest pain, palpitations, LUNGS: Denies acute: SOB, wheezing, cough, hemoptysis ABDOMEN: Denies acute: diarrhea, melena , hematemesis, hematochezia SKIN: Denies acute: rash, redness, lesions, itchiness. EXTREMITIES: Denies acute: calf pain, numbness, tingling, weakness, denies pain in extremity. Denies acute: Low back pain. Neuro: Denies acute: focal neurological deficit, motor or sensory focal neurological deficit, tremors, seizure like activity, confusion, dizziness, change in mental status, loss of bowel or bladder function, cauda equina like symptoms. : Denies acute: dysuria, hematuria, increase in urinary frequency. PSYCH: Denies acute: hallucination, suicidal ideation, homicidal ideation. PHYSICAL EXAM: General: -----moderate---acute distress, awake and alert. Head: normocephalic, atraumatic. No raccoon's eyes, no ramos sign. Neck: supple, trachea is midline, no swelling. Throat: Normal phonation. Eyes:, no erythema, no purulent discharge, no proptosis, no icterus. Heart: regular rate, regular rhythm, no significant murmur appreciated. Lungs: no apparent respiratory distress, Able to speak in full sentences. No wheezing, no rhonchi, no crackles. No stridors Clear to auscultation bilaterally. Abdomen: Left-sided and suprapubic tender to palpation, non distended, soft, no guarding, no rebound, + bowel sounds. Obese Neuro: Awake, Alert, oriented to name, self, situation, follows commands GCS=15. Speech is normal. Skin: no petechia, no purpura, no cyanosis, non-pale, not jaundice. Lower extremities: --no - Pitting edema no deformity, no focal swelling, no calf TTP. Makes eye contact. moves all four extremities. Face: no apparent facial droop. Left CVA tenderness to percussion . Ambulating in the ED independently. ED COURSE: DISCLAIMER: This medical document was created using an electronic medical record system with voice recognition software and computerized dictation system. Although this document has been carefully reviewed, there might still be some phonetic and typographical errors. Occasional wrong-word or "sound-alike" substitutions may have occurred due to the inherent limitations of voice recognition software. These areas are purely typographical due to imperfections of the software programs and do not reflect any compromise in the patient's medical care. Please read the chart carefully and recognize, using context, where these substitutions have occurred. Chief Complaint: Urinary Time Seen by MD: 00:19 Allergies: Coded Allergies: No Known Drug Allergy (Verified Allergy, Unknown, 03/01/25) Home Meds Active Scripts Valsartan (Valsartan) 160 Mg Tab, 160 MG PO DAILY for 30 Days, #30 TAB Prov:KAY PETTY MD 03/01/25 Tamsulosin Hcl (Tamsulosin Hcl) 0.4 Mg Cap, 0.4 MG PO QPM for 7 Days, #7 CAP 0 Refills Prov:SKIP JUAN RESIDENT 03/01/25 Mode of Arrival: Ambulatory Past Medical History PAST MEDICAL HISTORY: Denies Surgical History: Denies all surgeries X-Ray, Labs, Meds, VS Vital Signs Date Time Temp Pulse Resp B/P (MAP) Pulse Ox O2 Delivery O2 Flow Rate FiO2 05/23/25 01:36 97.7 85 20 143/90 (107) 98 97.7 05/23/25 01:36 82 20 97 Room Air 05/23/25 00:20 98.0 91 18 134/95 98 98.0 Lab Test 05/23/25 00:40 05/23/25 00:36 Range/Units Urine Color Yellow Yellow Urine Clarity Ex.turbid Clear Urine pH 5.5 5.0-9.0 Urine Specific Wolverine 1.047 H 1.001-1.035 Urine Protein 1+ H Negative Urine Ketones 1+ H Negative Urine Blood 2+ H Negative /uL Urine Nitrite Negative Negative Urine Bilirubin Negative Negative Urine Urobilinogen Normal Negative mg/dL Urine Leukocyte Esterase Negative Negative /uL Urine RBC 138 0 - 3 /hpf Urine Microscopic WBC < 1 0-3 /HPF Urine Squamous Epithelial Cells Few <5 /hpf Urine Amorphous Crystals Many None Seen /hpf Urine Bacteria None seen None Seen /hpf Urine Mucus Few None Seen Urine Glucose Normal Normal mg/dL Urine Opiates Screen Neg NEGATIVE Urine Fentanyl Screen Neg NEGATIVE Urine Barbiturates Screen Neg NEGATIVE Urine Phencyclidine Screen Neg NEGATIVE Urine Amphetamines Screen Neg NEGATIVE Urine Benzodiazepines Screen Neg NEGATIVE Urine Cocaine Screen Neg NEGATIVE Urine Cannabinoids Screen Pos NEGATIVE White Blood Count 12.1 H 4.4-10.8 10^3/uL Red Blood Count 5.42 4.5-5.90 10^6/uL Hemoglobin 15.5 13.5-17.5 g/dL Hematocrit 46.5 41.0-53.0 % Mean Corpuscular Volume 85.8 80.0-100.0 fL Mean Corpuscular Hemoglobin 28.7 28.0-32.0 pg Mean Corpuscular Hemoglobin Concent 33.4 32.0-36.0 g/dL Red Cell Distribution Width 14.2 11.8-14.3 % Platelet Count 247 140-450 10^3/uL Mean Platelet Volume 8.3 6.9-10.8 fL Neutrophils (%) (Auto) 82.5 H 37.0-80.0 % Lymphocytes (%) (Auto) 11.6 10.0-50.0 % Monocytes (%) (Auto) 5.6 0.0-12.0 % Eosinophils (%) (Auto) 0.1 0.0-7.0 % Basophils (%) (Auto) 0.2 0.0-2.0 % Neutrophils # (Auto) 9.9 H 1.6-8.6 10 ^3/uL Lymphocytes # (Auto) 1.4 0.4-5.4 10 ^3/uL Monocytes # (Auto) 0.7 0-1.3 10 ^3/uL Eosinophils # (Auto) 0 0-0.8 10 ^3/uL Basophils # (Auto) 0 0-0.2 10 ^3/uL Nucleated Red Blood Cells 0.0 % Sodium Level 138 136-145 mmol/L Potassium Level 4.2 3.5-5.1 mmol/L Chloride Level 104 98-107 mmol/L Carbon Dioxide Level 21 20-31 mmol/L Anion Gap 13 5-15 Blood Urea Nitrogen 12 9-23 mg/dL Creatinine 1.14 0.700-1.30 mg/dL Glomerular Filtration Rate Calc 82 >90 mL/min BUN/Creatinine Ratio 10.5 10.0-20.0 Serum Glucose 119 H 74-106 mg/dL Lactic Acid Level 1.0 0.4-2.0 mmol/L Calcium Level 9.5 8.7-10.4 mg/dL Total Bilirubin 0.5 0.2-1.0 mg/dL Aspartate Amino Transferase (AST) 26 13-40 U/L Alanine Aminotransferase (ALT) 32 7-40 U/L Alkaline Phosphatase 83 46-116 U/L Total Protein 8.2 5.7-8.2 g/dL Albumin 4.8 3.2-4.8 g/dL Current Medications Medications (Trade) Dose Ordered Sig/Sunny Route Start Time Stop Time Status Last Admin Sodium Chloride 1,000 ml @ 1,000 mls/hr Q1H ONCE IV 05/23/25 01:15 05/23/25 02:14 DC 05/23/25 02:01 Ondansetron HCl (Zofran) 8 mg ONCE ONCE IV 05/23/25 01:15 05/23/25 01:16 DC 05/23/25 02:01 Tamsulosin HCl (Flomax) 0.4 mg ONCE ONCE PO 05/23/25 01:15 05/23/25 01:16 DC 05/23/25 02:09 Fentanyl Citrate 100 mcg ONCE ONCE IV 05/23/25 01:15 05/23/25 01:16 DC 05/23/25 02:[address] [address] Ph: [phone] DIAGNOSTIC IMAGING Diagnostic Imaging Report : [id number] Signed PATIENT: ROEL PANDA ACCT: [id number] UNIT: [id number] : 1980 LOC: ER ROOM / BED: / AGE / SEX: 45 / M ADM STATUS: REG ER SERVICE 0020 ORDERING PHYSICIAN: LIANG LINARES DO PROCEDURE(s): ABPL - CT AB PEL WO CON-NO ORAL OR IV REASON: flank pain ORDER NUMBER(s): [id number], ACCESSION NUMBER(s): [id number] EXAM: CT CT AB PEL WO CON-NO ORAL OR IV History: flank pain Comparison Study: CT CT AB PEL WO CON-NO ORAL OR IV on DOS: 03/01/25 TECHNIQUE: Multidetector spiral CT of the abdomen was performed from lung bases to pubic symphysis. Imaging was performed without IV contrast. Axial, coronal and sagittal multiplanar reformats were obtained from the axial data set by the technologist. Radiation Dose : 1. Abdomen/Pelvis: CTDIvol 25.61 mGy, DLP 1460.12 mGy*cm. FINDINGS: Evaluation of solid organs is limited due to lack of intravenous contrast use. Lung Bases: No acute or significant lung base finding. Normal heart size. No pleural or pericardial effusion. Liver: The liver is normal in size. No focal lesions. Gallbladder and Biliary Tree: Gallbladder is surgically absent. Spleen: Unremarkable Pancreas: The pancreas is grossly normal in appearance. Adrenal Glands: Unremarkable Kidneys: Obstructing distal left ureteric calculus measuring 7 mm resulting in mild hydronephrosis. Bladder: Grossly unremarkable for degree of distention. Bowel: The stomach is grossly normal in appearance. Small bowel and colon are normal in caliber and distribution. The appendix is not visualized; however, no secondary findings of acute appendicitis identified. Ascites: Absent Lymphadenopathy: No mesenteric, retroperitoneal or periportal lymphadenopathy. Abdominal Wall and Mesentery: Unremarkable. Vasculature: The visualized abdominal aorta is normal in size and caliber. Evaluation of abdominal and pelvic vessels is limited due to lack of intravenous contrast. Pelvic Organs: Unremarkable Musculoskeletal: No aggressive focal bony lesions, acute fractures or dislocation. IMPRESSION: Obstructing distal left ureteric calculus measuring 7 mm resulting in mild hydronephrosis. Radiation optimization: All CT scans at this facility use at least one of these dose optimization techniques: automated exposure control mA and/or kV adjustment per patient size (includes targeted exams where dose is matched to clinical indication) or iterative reconstruction. Departure 1 Departure Time of Disposition: 01:22 Impression: Primary Impression: Hydronephrosis with renal calculous obstruction Disposition: ADMITTED INPATIENT Admit to: [facility] Condition: Guarded Discharged With: Self I personally scribed for LIANG LINARES DO ([email or web address]) on 05/23/25 at 01:17. Electronically submitted by Marielos Mendez ([email or web address]). LIANG LINARES DO May 23, 2025 01:15
[2025-05-23 01:18] LABS: Alanine Aminotransferase 32 U/L (7-40); Alkaline Phosphatase 83 U/L (46-116); Anion Gap 13 (5-15); BUN/Creatinine Ratio 10.5 (10.0-20.0); Blood Urea Nitrogen 12 mg/dL (9-23); Calcium 9.5 mg/dL (8.7-10.4); Carbon Dioxide 21 mmol/L (20-31); Chloride 104 mmol/L (98-107); Potassium 4.2 mmol/L (3.5-5.1); Sodium 138 mmol/L (136-145)
[2025-05-23 01:19] LABS: Bilirubin, Total 0.5 mg/dL (0.2-1.0)
[2025-05-23 01:21] LABS: Albumin 4.8 g/dL (3.2-4.8); Glucose 119 mg/dL (74-106); Total Protein 8.2 g/dL (5.7-8.2)
[2025-05-23] MEDS: fentaNYL CITRATE 100 MCG/2 ML VL IV ONE (02:00)
[2025-05-23] MEDS: SODIUM CHLORIDE 0.9% 1,000 ML IV ONE (02:01)
[2025-05-23] MEDS: ONDANSETRON HCL 4 MG/2 ML VIAL IV ONE (02:01)
[2025-05-23 02:02] LABS: Urine Amorphous Crystal MANY /hpf (None Seen); Urine Protein, UAD 1+ (Negative)
[2025-05-23] MEDS: TAMSULOSIN HYDROCHLORIDE 0.4 MG CAP PO ONE (02:09)
--- NOTE | 2025-05-23 02:27 | DVHHPRES ---
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 this evening and he describes the pain as 10/10 in intensity, radiating to left abdominal and suprapubic area, associated with nausea, vomiting. Patient states that he vomited 5 times and has symptoms of dysuria, burning sensation when peeing, discoloration of urine. Patient denies any fever, chills, diarrhea, constipation, shortness of the breath, urinary incontinence. Patient also states that he has not been drinking enough water and has been dehydrated. Previous hospitalization: Previously hospitalized for kidney stone which was 7 mm PSHx: Oral surgery Family history: Reviewed, noncontributory Social history: Ex-smoker, drinks occasionally, marijuana user , lives with Home medication: Valsartan Allergic history: Denies Patient seen in [facility]. Patient has 9/10 left flank pain. Denies any nausea, vomiting, diarrhea, constipation, fever, chills. Review of Systems Constitutional: No: Fever, Chills, Sweats, Weakness, Malaise, Other Eyes: No: Pain, Vision change, Conjunctivae inflammation, Eyelid inflammation, Other, Redness ENT: No: Ear pain, Ear discharge, Nose pain, Nose discharge, Nose congestion, Mouth pain, Mouth swelling, Throat pain, Throat swelling, Other Respiratory: No: Cough, Dry, Shortness of breath, SOB with excertion, Wheezing, Hemoptysis, Pleuritic Pain, Sputum, Wheezing, Other Cardiovascular: No: Chest Pain, Palpitations, Orthopnea, Paroxysmal Noc. Dyspnea, Edema, Lt Headedness, Other Gastrointestinal: Nausea, Vomiting, Abdominal Pain; No: Diarrhea, Constipation, Melena, Hematochezia, Other Genitourinary: Dysuria, Frequency; No Incontinence; Hematuria; No Retention, No Other Musculoskeletal: No: other, neck pain, shoulder pain, arm pain, back pain, hand pain, leg pain, foot pain Skin: No: Rash, Lesions, Jaundice, Bruising, Other Neurological: No: Weakness, Numbness, Incoordination, Change in speech, Confusion, Seizures, Other Allergies: Coded Allergies: No Known Drug Allergy (Verified Allergy, Unknown, 03/01/25) Medications Current Medications Medications Dose Ordered Sig/Sunny Route Start Time Stop Time Status Last Admin Dose Admin Ondansetron HCl 4 mg Q4HP PRN IV 05/23/25 02:00 Exam Vital Signs Vital Signs Date Time Temp Pulse Resp B/P (MAP) Pulse Ox O2 Delivery O2 Flow Rate FiO2 05/23/25 02:00 143/90 05/23/25 01:36 97.7 85 20 98 97.7 05/23/25 01:36 Room Air Exam General: Patient alert and oriented in person, place and time. Patient following commands. In moderate distress HEENT: Normocephalic, atraumatic, moist mucous membranes Respiratory/pulmonary: Clear lungs bilaterally, vesicular murmurs present in almost all lung monk, no associated crackles or wheezes. Cardiovascular: Normal heart sounds S1 and S2 with no associated murmurs Abdomen: Left flank tenderness on palpation, Extremities: There is no peripheral edema present at the lower extremities. Peripheral Pulses: 3+ Radial (R). 3+ Radial (L). 3+ Dorsalis pedis (R). 3+ Dorsalis pedis(L) Skin: No rashes or pruritus, there is no sacral edema present at this time. Neurological: Intact cranial nerves with no focal neurologic deficits Labs/Xrays Labs Test 05/23/25 00:40 05/23/25 00:36 Range/Units Urine Color Yellow Yellow Urine Clarity Ex.turbid Clear Urine pH 5.5 5.0-9.0 Urine Specific Montara 1.047 H 1.001-1.035 Urine Protein 1+ H Negative Urine Ketones 1+ H Negative Urine Blood 2+ H Negative /uL Urine Nitrite Negative Negative Urine Bilirubin Negative Negative Urine Urobilinogen Normal Negative mg/dL Urine Leukocyte Esterase Negative Negative /uL Urine RBC 138 0 - 3 /hpf Urine Microscopic WBC < 1 0-3 /HPF Urine Squamous Epithelial Cells Few <5 /hpf Urine Amorphous Crystals Many None Seen /hpf Urine Bacteria None seen None Seen /hpf Urine Mucus Few None Seen Urine Glucose Normal Normal mg/dL White Blood Count 12.1 H 4.4-10.8 10^3/uL Red Blood Count 5.42 4.5-5.90 10^6/uL Hemoglobin 15.5 13.5-17.5 g/dL Hematocrit 46.5 41.0-53.0 % Mean Corpuscular Volume 85.8 80.0-100.0 fL Mean Corpuscular Hemoglobin 28.7 28.0-32.0 pg Mean Corpuscular Hemoglobin Concent 33.4 32.0-36.0 g/dL Red Cell Distribution Width 14.2 11.8-14.3 % Platelet Count 247 140-450 10^3/uL Mean Platelet Volume 8.3 6.9-10.8 fL Neutrophils (%) (Auto) 82.5 H 37.0-80.0 % Lymphocytes (%) (Auto) 11.6 10.0-50.0 % Monocytes (%) (Auto) 5.6 0.0-12.0 % Eosinophils (%) (Auto) 0.1 0.0-7.0 % Basophils (%) (Auto) 0.2 0.0-2.0 % Neutrophils # (Auto) 9.9 H 1.6-8.6 10 ^3/uL Lymphocytes # (Auto) 1.4 0.4-5.4 10 ^3/uL Monocytes # (Auto) 0.7 0-1.3 10 ^3/uL Eosinophils # (Auto) 0 0-0.8 10 ^3/uL Basophils # (Auto) 0 0-0.2 10 ^3/uL Nucleated Red Blood Cells 0.0 % Sodium Level 138 136-145 mmol/L Potassium Level 4.2 3.5-5.1 mmol/L Chloride Level 104 98-107 mmol/L Carbon Dioxide Level 21 20-31 mmol/L Anion Gap 13 5-15 Blood Urea Nitrogen 12 9-23 mg/dL Creatinine 1.14 0.700-1.30 mg/dL Glomerular Filtration Rate Calc 82 >90 mL/min BUN/Creatinine Ratio 10.5 10.0-20.0 Serum Glucose 119 H 74-106 mg/dL Lactic Acid Level 1.0 0.4-2.0 mmol/L Calcium Level 9.5 8.7-10.4 mg/dL Total Bilirubin 0.5 0.2-1.0 mg/dL Aspartate Amino Transferase (AST) 26 13-40 U/L Alanine Aminotransferase (ALT) 32 7-40 U/L Alkaline Phosphatase 83 46-116 U/L Total Protein 8.2 5.7-8.2 g/dL Albumin 4.8 3.2-4.8 g/dL SEPSIS Sepsis Screen Date sepsis recognized/suspect: May 23, 2025 Time Sepsis recognized/suspect: 138 Recent Procedure: No On Antibiotic Therapy: No Respiratory Rate >20: No Heart Rate >90: No Temp<36 C (96.8 F) or >38.3 C: No SBP <90 or MAP <65 mmHG: No New Acute Mental Status Change: No Is the patient on CPAP, BIPAP,: No Physician Orders Ct Ab Pel Wo Con-No Oral Or Iv (05/23/25 00:20) Sewer (05/23/25 ) Admit (05/23/25 01:58) Renal Standard(2gna,3gk,Lopho) (05/23/25 Breakfast) Ondansetron Hcl (Zofran) (05/23/25 02:00) Complete Blood Count (05/24/25 04:00) Comprehensive Metabolic Panel (05/24/25 04:00) Condition: Serious (05/23/25 01:58) Bedrest With Bathroom Privileg (05/23/25 01:58) Notify Md Of Changes From Base (05/23/25 01:58) 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 24 Hours (05/23/25 01:58) Emergency Dysrhythmia Protocol (05/23/25 01:58) Rhythm Strips Once Every Shift (05/23/25 01:58) Stat Ekg For Chest Pain (05/23/25 01:58) Drug Screen (05/23/25 01:58) Kidney (05/23/25 01:58) Vital Signs Date Time Temp Pulse Resp B/P (MAP) Pulse Ox O2 Delivery O2 Flow Rate FiO2 05/23/25 02:00 143/90 05/23/25 01:36 97.7 85 20 143/90 (107) 98 97.7 05/23/25 01:36 82 20 97 Room Air 05/23/25 00:20 98.0 91 18 134/95 98 98.0 Laboratory Tests Test 05/23/25 00:36 Lactic Acid Level 1.0 mmol/L (0.4-2.0) White Blood Count 12.1 10^3/uL (4.4-10.8) H Medications Medications Dose Ordered Sig/Sunny Route Start Time Stop Time Status Last Admin Dose Admin Fentanyl Citrate 100 mcg ONCE ONCE IV 05/23/25 01:15 05/23/25 01:16 DC 05/23/25 02:00 100 MCG Ondansetron HCl 8 mg ONCE ONCE IV 05/23/25 01:15 05/23/25 01:16 DC 05/23/25 02:01 8 MG Sodium Chloride 1,000 ml @ 1,000 mls/hr Q1H ONCE IV 05/23/25 01:15 05/23/25 02:14 DC 05/23/25 02:01 1,000 MLS/HR Tamsulosin HCl 0.4 mg ONCE ONCE PO 05/23/25 01:15 05/23/25 01:16 DC 05/23/25 02:09 0.4 MG Assessment/Plan Assessment/Plan Nephrolithiasis Moderate hydronephrosis CT abdomen showed Obstructing distal left ureteric calculus measuring 7 mm resulting in mild hydronephrosis. Kidney ultrasound showed moderate hydronephrosis IV fluids Pain management with Toradol Tamsulosin 0.4 Hypertension Continue home meds Obesity BMI 41.7 Patient counseled on diet, exercise, lifestyle modification for 18 minutes Cannabis abuse disorder -patient counseled on cessation of marijuana for 18 minutes PPI prophylaxis: Protonix DVT prophylaxis: Lovenox Goals of care addressed with the patient for more than 27 minutes: Full code status Case discussed with Dr. Gomez, patient and nurse Plan discussed with: Patient My Orders Orders - LETICIA AVINA RESIDENT Procedure Category Date Status Time Admit ADMIT 05/23/25 Transmitted 01:58 Renal DIET 05/23/25 Transmitted Standard(2gna,3gk,Lopho) Breakfast Ondansetron Hcl PHA 05/23/25 In Process (Zofran) 02:00 Complete Blood Count LAB 05/24/25 Verified 04:00 Comprehensive LAB 05/24/25 Verified Metabolic Panel 04:00 Condition: Serious ISABEL 05/23/25 In Process 01:58 Bedrest With Bathroom [facility] 05/23/25 In Process Privileg 01:58 Notify Of Changes [facility] 05/23/25 In Process From Base 01:58 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 [facility] 05/23/25 In Process 24 Hours 01:58 Emergency Dysrhythmia [facility] 05/23/25 In Process Protocol 01:58 Rhythm Strips Once [facility] 05/23/25 In Process Every Shift 01:58 Stat Ekg For Chest [facility] 12/17/25 In Process Pain 01:58 Drug Screen LAB 05/23/25 In Process 01:58 Kidney US 05/23/25 Logged 01:58 Visit Coding STANDARD RES Billing Provider: GARRISON GOMEZ MD Date of Service if different f: May 23, 2025 Common Visit Codes: 47741-[id number] INP/OBS CARE (HIGH) Secondary Visit Codes: 06746-[id number] CARE PLAN 30 MINUTES LETICIA AVINA RESIDENT May 23, 2025 02:27
[2025-05-23] MEDS ORDERED: KETOROLAC TROMETH 30 MG/ML 1ML VIAL IV PRN (02:30)
--- NOTE | 2025-05-23 02:54 | DVH ---
INDICATION: Kidney stone TECHNIQUE: Multiple real-time sonographic images of the kidneys and bladder were obtained. COMPARISON: None FINDINGS: RIGHT kidney measures 12.2 cm in length with normal parenchymal echotexture and cortical thickness. No evidence of nephrolithiasis or hydronephrosis. LEFT kidney measures 12.0 cm in length. Moderate hydronephrosis. No evidence of nephrolithiasis. The urinary bladder appears decompressed. IMPRESSION: 1. Moderate left hydronephrosis.
[2025-05-23 03:30] LABS: Cannabinoid Screen, Urine Pos (NEGATIVE)
[2025-05-23 03:35] LABS: Barbiturate Scree,Urine Neg (NEGATIVE); Benzodiazephine Screen, Urine Neg (NEGATIVE); Cocaine Screen, Urine Neg (NEGATIVE); Opiate Scree,Urine Neg (NEGATIVE); Phencyclidine Screen, Urine Neg (NEGATIVE)
[2025-05-23] MEDS: KETOROLAC TROMETH 30 MG/ML 1ML VIAL IV ONE (03:39)
[2025-05-23 03:48] LABS: Amphetamine Screen, Urine Neg (NEGATIVE)
[2025-05-23] MEDS: ONDANSETRON HCL 4 MG/2 ML VIAL IV PRN (04:05)
[2025-05-23 04:48] VITALS: BP 107/59; PULSE 64; RESP 17; TEMP 97.6; O2SAT 96
[2025-05-23 07:18] LABS: Triglycerides 70 mg/dL (< 150)
[2025-05-23 07:20] LABS: HDL Cholesterol 54 mg/dL (40-59)
[2025-05-23 07:30] LABS: Cholesterol 202 mg/dL (< 200)
[2025-05-23 08:42] VITALS: BP 109/60; PULSE 71; RESP 18; TEMP 98.4; O2SAT 98
[2025-05-23] MEDS: VALSARTAN 80 MG TAB PO SCH (10:08)
[2025-05-23 12:35] VITALS: BP 106/70; PULSE 66; RESP 20; TEMP 97.5; O2SAT 97
[2025-05-23] MEDS: SODIUM CHLORIDE 0.9% 1,000 ML IV SCH (13:38)
--- NOTE | 2025-05-23 14:27 | DVHINCON2 ---
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 He was readmitted with chief complaints of left flank pain which started around 4:00 p.m. last evening and he describes the pain as 10/10 in intensity, radiating to left abdominal and suprapubic area, associated with nausea, vomiting. Patient states that he vomited 5 times and has symptoms of dysuria, burning sensation when peeing, discoloration of urine. Patient denies any fever, chills, diarrhea, constipation, shortness of the br eath, urinary incontinence. Patient also states that he has not been drinking enough water and has been dehydrated. Previous hospitalization: Previously hospitalized for kidney stone which was 7 mm Past Medical History Kidney stone Past Surgical History Oral surgery Family History: FH: cancer G8 FATHER, Onset:Unknown Allergies: Coded Allergies: No Known Drug Allergy (Verified Allergy, Unknown, 03/01/25) Home Meds Active Scripts Valsartan (Valsartan) 160 Mg Tab, 160 MG PO DAILY for 30 Days, #30 TAB Prov:KAY PETTY MD 03/01/25 Tamsulosin Hcl (Tamsulosin Hcl) 0.4 Mg Cap, 0.4 MG PO QPM for 7 Days, #7 CAP 0 Refills Prov:SKIP JUAN RESIDENT 03/01/25 Current Medications Current Medications Medications (Trade) Dose Ordered Sig/Sunny Route PRN Reason Start Time Stop Time Status Last Admin Ondansetron HCl (Zofran) 4 mg Q4HP PRN IV NAUSEA / VOMITING 05/23/25 02:00 05/23/25 04:05 Tamsulosin HCl (Flomax) 0.4 mg QPM PO 05/23/25 18:00 05/23/25 04:17 DC Ketorolac Tromethamine (Toradol Injection) 15 mg Q6HPRN PRN IV MODERATE PAIN (4-6 PAIN SCALE) 05/23/25 02:30 05/28/25 02:29 Valsartan (Diovan) 160 mg DAILY PO 05/23/25 10:00 05/23/25 10:08 Tamsulosin HCl (Flomax) 0.8 mg QPM PO 05/23/25 18:00 Sodium Chloride 1,000 ml @ 100 mls/hr Q10H IV 05/23/25 11:45 05/23/25 13:38 Review of Systems Constitutional: No: Fever, Chills, Sweats, Weakness, Malaise, Other Eyes: No: Pain, Vision change, Conjunctivae inflammation, Eyelid inflammation, Other, Redness ENT: No: Ear pain, Ear discharge, Nose pain, Nose discharge, Nose congestion, Mouth pain, Mouth swelling, Throat pain, Throat swelling, Other Respiratory: No: Cough, Dry, Shortness of breath, SOB with excertion, Wheezing, Hemoptysis, Pleuritic Pain, Sputum, Wheezing, Other Cardiovascular: No: Chest Pain, Palpitations, Orthopnea, Paroxysmal Noc. Dyspnea, Edema, Lt Headedness, Other Gastrointestinal: Nausea, Vomiting, Abdominal Pain; No: Diarrhea, Constipation, Melena, Hematochezia, Other Genitourinary: Dysuria, Frequency; No Incontinence; Hematuria; No Retention, No Other Musculoskeletal: No: other, neck pain, shoulder pain, arm pain, back pain, hand pain, leg pain, foot pain Skin: No: Rash, Lesions, Jaundice, Bruising, Other Neurological: No: Weakness, Numbness, Incoordination, Change in speech, Confusion, Seizures, Other Allergies: Coded Allergies: No Known Drug Allergy (Verified Allergy, Unknown, 03/01/25) Medications Current Medications Medications Dose Ordered Sig/Sunny Route Start Time Stop Time Status Last Admin Dose Admin Ondansetron HCl 4 mg Q4HP PRN IV 05/23/25 02:00 Vital Signs Vital Signs Date Time Temp Pulse Resp B/P (MAP) Pulse Ox O2 Delivery O2 Flow Rate FiO2 05/23/25 12:35 97.5 66 20 106/70 (82) 97 97.5 05/23/25 07:35 Room Air* 0 21 Physical Exam Vital Signs Date Time Temp Pulse Resp B/P (MAP) Pulse Ox O2 Delivery O2 Flow Rate FiO2 05/23/25 02:00 143/90 05/23/25 01:36 97.7 85 20 98 97.7 05/23/25 01:36 Room Air Exam General: Patient alert and oriented in person, place and time. Patient following commands. In moderate distress HEENT: Normocephalic, atraumatic, moist mucous membranes Respiratory/pulmonary: Clear lungs bilaterally, vesicular murmurs present in almost all lung monk, no associated crackles or wheezes. Cardiovascular: Normal heart sounds S1 and S2 with no associated murmurs Abdomen: Left flank tenderness on palpation, Extremities: There is no peripheral edema present at the lower extremities. Peripheral Pulses: 3+ Radial (R). 3+ Radial (L). 3+ Dorsalis pedis (R). 3+ Dorsalis pedis(L) Skin: No rashes or pruritus, there is no sacral edema present at this time. Neurological: Intact cranial nerves with no focal neurologic deficits Labs/Diagnostic Data Labs Test 05/23/25 07:52 05/23/25 00:40 05/23/25 00:36 Range/Units Urine Color Yellow Yellow Urine Clarity Ex.turbid Clear Urine pH 5.5 5.0-9.0 Urine Specific [place] 1.047 H 1.001-1.035 Urine Protein 1+ H Negative Urine Ketones 1+ H Negative Urine Blood 2+ H Negative /uL Urine Nitrite Negative Negative Urine Bilirubin Negative Negative Urine Urobilinogen Normal Negative mg/dL Urine Leukocyte Esterase Negative Negative /uL Urine RBC 138 0 - 3 /hpf Urine Microscopic WBC < 1 0-3 /HPF Urine Squamous Epithelial Cells Few <5 /hpf Urine Amorphous Crystals Many None Seen /hpf Urine Bacteria None seen None Seen /hpf Urine Mucus Few None Seen Urine Glucose Normal Normal mg/dL Urine Opiates Screen Neg NEGATIVE Urine Fentanyl Screen Neg NEGATIVE Urine Barbiturates Screen Neg NEGATIVE Urine Phencyclidine Screen Neg NEGATIVE Urine Amphetamines Screen Neg NEGATIVE Urine Benzodiazepines Screen Neg NEGATIVE Urine Cocaine Screen Neg NEGATIVE Urine Cannabinoids Screen Pos NEGATIVE White Blood Count 12.1 H 4.4-10.8 10^3/uL Red Blood Count 5.42 4.5-5.90 10^6/uL Hemoglobin 15.5 13.5-17.5 g/dL Hematocrit 46.5 41.0-53.0 % Mean Corpuscular Volume 85.8 80.0-100.0 fL Mean Corpuscular Hemoglobin 28.7 28.0-32.0 pg Mean Corpuscular Hemoglobin Concent 33.4 32.0-36.0 g/dL Red Cell Distribution Width 14.2 11.8-14.3 % Platelet Count 247 140-450 10^3/uL Mean Platelet Volume 8.3 6.9-10.8 fL Neutrophils (%) (Auto) 82.5 H 37.0-80.0 % Lymphocytes (%) (Auto) 11.6 10.0-50.0 % Monocytes (%) (Auto) 5.6 0.0-12.0 % Eosinophils (%) (Auto) 0.1 0.0-7.0 % Basophils (%) (Auto) 0.2 0.0-2.0 % Neutrophils # (Auto) 9.9 H 1.6-8.6 10 ^3/uL Lymphocytes # (Auto) 1.4 0.4-5.4 10 ^3/uL Monocytes # (Auto) 0.7 0-1.3 10 ^3/uL Eosinophils # (Auto) 0 0-0.8 10 ^3/uL Basophils # (Auto) 0 0-0.2 10 ^3/uL Nucleated Red Blood Cells 0.0 % Sodium Level 138 136-145 mmol/L Potassium Level 4.2 3.5-5.1 mmol/L Chloride Level 104 98-107 mmol/L Carbon Dioxide Level 21 20-31 mmol/L Anion Gap 13 5-15 Blood Urea Nitrogen 12 9-23 mg/dL Creatinine 1.14 0.700-1.30 mg/dL Glomerular Filtration Rate Calc 82 >90 mL/min BUN/Creatinine Ratio 10.5 10.0-20.0 Serum Glucose 119 H 74-106 mg/dL Hemoglobin A1c 5.2 <5.7 % A1C Lactic Acid Level 1.0 0.4-2.0 mmol/L Calcium Level 9.5 8.7-10.4 mg/dL Total Bilirubin 0.5 0.2-1.0 mg/dL Aspartate Amino Transferase (AST) 26 13-40 U/L Alanine Aminotransferase (ALT) 32 7-40 U/L Alkaline Phosphatase 83 46-116 U/L Total Protein 8.2 5.7-8.2 g/dL Albumin 4.8 3.2-4.8 g/dL Triglycerides Level 70 < 150 mg/dL Cholesterol Level 202 H < 200 mg/dL LDL Cholesterol 152 H < 100 mg/dL HDL Cholesterol 54 40-59 mg/dL Thyroid Stimulating Hormone (TSH) 1.86 0.55-4.78 uIU/mL PATIENT: ROEL PANDA ACCT: [id number] UNIT: [id number] : 1980 LOC: ER ROOM / BED: / AGE / SEX: 45 / M ADM STATUS: REG ER SERVICE 0020 ORDERING PHYSICIAN: LIANG LINARES DO PROCEDURE(s): ABPL - CT AB PEL WO CON-NO ORAL OR IV REASON: flank pain ORDER NUMBER(s): [id number], ACCESSION NUMBER(s): [id number] EXAM: CT CT AB PEL WO CON-NO ORAL OR IV History: flank pain Comparison Study: CT CT AB PEL WO CON-NO ORAL OR IV on DOS: 03/01/25 TECHNIQUE: Multidetector spiral CT of the abdomen was performed from lung bases to pubic symphysis. Imaging was performed without IV contrast. Axial, coronal and sagittal multiplanar reformats were obtained from the axial data set by the technologist. Radiation Dose : 1. Abdomen/Pelvis: CTDIvol 25.61 mGy, DLP 1460.12 mGy*cm. FINDINGS: Evaluation of solid organs is limited due to lack of intravenous contrast use. Lung Bases: No acute or significant lung base finding. Normal heart size. No pleural or pericardial effusion. Liver: The liver is normal in size. No focal lesions. Gallbladder and Biliary Tree: Gallbladder is surgically absent. Spleen: Unremarkable Pancreas: The pancreas is grossly normal in appearance. Adrenal Glands: Unremarkable Kidneys: Obstructing distal left ureteric calculus measuring 7 mm resulting in mild hydronephrosis. Bladder: Grossly unremarkable for degree of distention. Bowel: The stomach is grossly normal in appearance. Small bowel and colon are normal in caliber and distribution. The appendix is not visualized; however, no secondary findings of acute appendicitis identified. Ascites: Absent Lymphadenopathy: No mesenteric, retroperitoneal or periportal lymphadenopathy. Abdominal Wall and Mesentery: Unremarkable. Vasculature: The visualized abdominal aorta is normal in size and caliber. Evaluation of abdominal and pelvic vessels is limited due to lack of intravenous contrast. Pelvic Organs: Unremarkable Musculoskeletal: No aggressive focal bony lesions, acute fractures or dislocation. IMPRESSION: Obstructing distal left ureteric calculus measuring 7 mm resulting in mild hydronephrosis. Radiation optimization: All CT scans at this facility use at least one of these dose optimization techniques: automated exposure control mA and/or kV adjustment per patient size (includes targeted exams where dose is matched to clinical indication) or iterative reconstruction. ATED BY: GLORIA LAO MD DICTATED DATE/TIME: 05/23/2555 SIGNED BY: GLORIA LAO MD SIGNED DATE/TIME: 05/23/2555 CC: Assessment 7 mm left UVJ stone with mild hydronephrosis (per CT Scan) Moderate left hydronephrosis (per US) Flank pain resolved. Plan/Recommendation Bladder US for ureteral jetting check done. Bilateral jettings noted. Patient is not having any pain currently. Patient and family were informed that he will need ESWL with possible stent placement as Outpt tx. He is cleared for discharge from standpoint Plan discussed with: Patient, Other TRE YOUNGBLOOD MD May 23, 2025 14:27
--- NOTE | 2025-05-23 15:24 | DVH ---
US BLADDER COMPARISON: None INDICATION: check for ureteral jetting TECHNIQUE: Targeted ultrasound exam of the bladder was performed. FINDINGS: The prevoid volume of the bladder measures 182 cc. Bilateral ureteral jets visualized. IMPRESSION: Bilateral ureteral jets visualized.
[2025-05-23 16:38] VITALS: BP 128/86; PULSE 68; RESP 19; TEMP 98; O2SAT 96
[2025-05-23] MEDS ORDERED: TAMSULOSIN HYDROCHLORIDE 0.4 MG CAP PO SCH (18:00)
[2025-05-23] MEDS: TAMSULOSIN HYDROCHLORIDE 0.4 MG CAP PO SCH (18:00)
--- NOTE | 2025-05-23 19:20 | DVHPNRES ---
Progress Note Date Seen: May 23, 2025 Resident Creating Document: TYRA MANRIQUEZ RESIDENT Medical Necessity Reason Pt with a Central, PICC or Fol: No Subjective Review of Systems This is a 45-year-old male with past medical history of renal stone, hypertension came to ER with a complaint of left flank pain which started around 4:00 p.m. day before admission which is 10/10 intensity, continuous dull pain and radiates to suprapubic area associated with nausea and vomiting. Patient recently discharged on 04/27/2025 from hospital due to similar symptoms. Patient is also having nausea and vomiting before came to the hospital, the vomitus contained food materials but no blood mixed. Patient currently denies any fever, chills, diarrhea, constipation, SOB, chest pain, headache, any focal weakness. Denies any recent history of trauma fall, any dietary changes or drinking alcohol. Patient stated not taking enough water for hydration. Patient scheduled for urology outpatient. Previous hospitalization: Renal stone, hypertension PSHx: Oral surgery Family history: Reviewed, noncontributory Social history: Ex-smoker, drinks occasionally, marijuana user , lives with Home medication: Valsartan Allergic history: Denies Patient seen and evaluated in bedside today. Patient pain under control with current pain management. Urology consulted and recommended outpatient follow-up. Possible discharge tomorrow morning. Laboratory for leukocytosis. Objective vital signs Vital Sign Date Time Temp Pulse Resp B/P (MAP) Pulse Ox O2 Delivery O2 Flow Rate FiO2 05/23/25 16:38 98.0 68 19 128/86 (100) 96 98.0 05/23/25 07:35 Room Air* 0 21 Total Intake and Output 05/22/25 05/22/25 05/23/25 15:00 23:00 07:00 Intake Total 1000 ml Balance 1000 ml medications Current Medications Medications Dose Ordered Sig/Sunny Route Start Time Stop Time Status Last Admin Dose Admin Ondansetron HCl 4 mg Q4HP PRN IV 05/23/25 02:00 05/23/25 04:05 4 MG Ketorolac Tromethamine 15 mg Q6HPRN PRN IV 05/23/25 02:30 05/28/25 02:29 Valsartan 160 mg DAILY PO 05/23/25 10:00 05/23/25 10:08 160 MG Tamsulosin HCl 0.8 mg QPM PO 05/23/25 18:00 Sodium Chloride 1,000 ml @ 100 mls/hr Q10H IV 05/23/25 11:45 05/23/25 13:38 100 MLS/HR Examination General: Patient alert and oriented in person, place and time. Patient following commands. In moderate distress HEENT: Normocephalic, atraumatic, moist mucous membranes Respiratory/pulmonary: Clear lungs bilaterally, vesicular murmurs present in almost all lung monk, no associated crackles or wheezes. Cardiovascular: Normal heart sounds S1 and S2 with no associated murmurs Abdomen: Left flank tender on deep palpation, Extremities: There is no peripheral edema present at the lower extremities. Peripheral Pulses: 3+ Radial (R). 3+ Radial (L). 3+ Dorsalis pedis (R). 3+ Dorsalis pedis(L) Skin: No rashes or pruritus, there is no sacral edema present at this time. Neurological: Intact cranial nerves with no focal neurologic deficits laboratory and microbiology Laboratory Tests 05/23/25 00:36 Test 05/23/25 00:36 Range/Units Serum Glucose 119 H 74-106 mg/dL Problem List/Assessment/Plan Problem List/Assessment/Plan Left ureteral calculus Left-sided hydronephrosis History of nephrolithiasis Leukocytosis likely reactive Hematuria due to ureteral stone CT abdomen showed Obstructing distal left ureteric calculus measuring 7 mm resulting in mild hydronephrosis. UA shows: Blood 1+, RBC 138, amorphous crystals many. Kidney ultrasound showed moderate hydronephrosis Ultrasound bladder shows bilateral ureteral jets. Ultrasound kidney showed moderate left hydronephrosis IV fluids Pain management Tamsulosin 0.4 Ondansetron Urology consulted and recommended outpatient follow-up with possible stent placement and need ESWL. Essential Hypertension Valsartan 160 mg Monitor blood pressure Cannabis abuse disorder UDS positive for cannabinoids Counseling done>13 MIN spent Obesity BMI 38.4 Lifestyle modification PPI prophylaxis: Protonix DVT prophylaxis: Lovenox Goals of care addressed with the patient for more than 27 minutes: Full code status Case discussed with Dr. Gomez, Plan discussed with: Patient, Other (Nurse) My Orders My Orders Orders - TYRA MANRIQUEZ RESIDENT Procedure Category Date Status Time * Urology Consult CONS 05/23/25 Transmitted 11:33 Sodium Chloride 0.9% PHA 05/23/25 In Process 11:45 Visit Coding STANDARD RES Billing Provider: GARRISON GOMEZ MD Date of Service if different f: May 23, 2025 Common Visit Codes: 54870-RBAGIQL INP/OBS CARE (HIGH) Secondary Visit Codes: 47374-FTMZSLJL CARE PLAN 30 MINUTES TYRA MANRIQUEZ RESIDENT May 23, 2025 19:19
[2025-05-23 21:00] VITALS: BP 113/78; PULSE 68; RESP 17; TEMP 97.4; O2SAT 97
[2025-05-24 01:00] VITALS: BP 129/85; PULSE 91; RESP 17; TEMP 97.2; O2SAT 95
[2025-05-24 05:00] VITALS: BP 139/82; PULSE 61; RESP 18; TEMP 97.2; O2SAT 94
[2025-05-24 06:11] LABS: Hematocrit 40.4 % (41.0-53.0); Hemoglobin 13.8 g/dL (13.5-17.5); Mean Corpuscular Hemoglobin 28.9 pg (28.0-32.0); Mean Corpuscular Volume 84.6 fL (80.0-100.0); Nucleated Red Blood Cells % 0.1 %
[2025-05-24 06:26] LABS: Anion Gap 9 (5-15); Carbon Dioxide 23 mmol/L (20-31); Potassium 4.0 mmol/L (3.5-5.1); Sodium 142 mmol/L (136-145)
[2025-05-24 06:27] LABS: Calcium 8.7 mg/dL (8.7-10.4)
[2025-05-24 06:32] LABS: BUN/Creatinine Ratio 14.6 (10.0-20.0); Blood Urea Nitrogen 12 mg/dL (9-23); Glucose 92 mg/dL (74-106)
[2025-05-24 06:35] LABS: Chloride 110 mmol/L (98-107)
[2025-05-24 08:00] VITALS: PULSE 66; RESP 19; O2SAT 98
[2025-05-24 08:30] VITALS: BP 147/89; PULSE 66; RESP 19; TEMP 98.3; O2SAT 98
--- NOTE | 2025-05-24 09:40 | DVHDSRES ---
Discharge Summary Date of Admission Resident Creating Document: TYRA MANRIQUEZ RESIDENT May 23, 2025 at 01:58 Date of Discharge: May 24, 2025 Labs/Diagnostic Data: Laboratory Results Test 05/24/25 04:59 05/23/25 07:52 05/23/25 00:40 05/23/25 00:36 White Blood Count 5.5 10^3/uL (4.4-10.8) Red Blood Count 4.77 10^6/uL (4.5-5.90) Hemoglobin 13.8 g/dL (13.5-17.5) Hematocrit 40.4 % (41.0-53.0) Mean Corpuscular Volume 84.6 fL (80.0-100.0) Mean Corpuscular Hemoglobin 28.9 pg (28.0-32.0) Mean Corpuscular Hemoglobin Concent 34.1 g/dL (32.0-36.0) Red Cell Distribution Width 14.0 % (11.8-14.3) Platelet Count 197 10^3/uL (140-450) Mean Platelet Volume 8.5 fL (6.9-10.8) Neutrophils (%) (Auto) 51.5 % (37.0-80.0) Lymphocytes (%) (Auto) 36.6 % (10.0-50.0) Monocytes (%) (Auto) 9.5 % (0.0-12.0) Eosinophils (%) (Auto) 2.1 % (0.0-7.0) Basophils (%) (Auto) 0.3 % (0.0-2.0) Neutrophils # (Auto) 2.8 10 ^3/uL (1.6-8.6) Lymphocytes # (Auto) 2.0 10 ^3/uL (0.4-5.4) Monocytes # (Auto) 0.5 10 ^3/uL (0-1.3) Eosinophils # (Auto) 0.1 10 ^3/uL (0-0.8) Basophils # (Auto) 0 10 ^3/uL (0-0.2) Nucleated Red Blood Cells 0.1 % Sodium Level 142 mmol/L (136-145) Potassium Level 4.0 mmol/L (3.5-5.1) Chloride Level 110 mmol/L (98-107) Carbon Dioxide Level 23 mmol/L (20-31) Anion Gap 9 (5-15) Blood Urea Nitrogen 12 mg/dL (9-23) Creatinine 0.82 mg/dL (0.700-1.30) Glomerular Filtration Rate Calc 112 mL/min (>90) BUN/Creatinine Ratio 14.6 (10.0-20.0) Serum Glucose 92 mg/dL (74-106) Calcium Level 8.7 mg/dL (8.7-10.4) Urine Color Yellow (Yellow) Urine Clarity Ex.turbid (Clear) Urine pH 5.5 (5.0-9.0) Urine Specific [place] 1.047 (1.001-1.035) Urine Protein 1+ (Negative) Urine Ketones 1+ (Negative) Urine Blood 2+ /uL (Negative) Urine Nitrite Negative (Negative) Urine Bilirubin Negative (Negative) Urine Urobilinogen Normal mg/dL (Negative) Urine Leukocyte Esterase Negative /uL (Negative) Urine RBC 138 /hpf (0 - 3) Urine Microscopic WBC < 1 /HPF (0-3) Urine Squamous Epithelial Cells Few /hpf (<5) Urine Amorphous Crystals Many /hpf (None Seen) Urine Bacteria None seen /hpf (None Seen) Urine Mucus Few (None Seen) Urine Glucose Normal mg/dL (Normal) Urine Opiates Screen Neg (NEGATIVE) Urine Fentanyl Screen Neg (NEGATIVE) Urine Barbiturates Screen Neg (NEGATIVE) Urine Phencyclidine Screen Neg (NEGATIVE) Urine Amphetamines Screen Neg (NEGATIVE) Urine Benzodiazepines Screen Neg (NEGATIVE) Urine Cocaine Screen Neg (NEGATIVE) Urine Cannabinoids Screen Pos (NEGATIVE) Hemoglobin A1c 5.2 % A1C (<5.7) Lactic Acid Level 1.0 mmol/L (0.4-2.0) Total Bilirubin 0.5 mg/dL (0.2-1.0) Aspartate Amino Transferase (AST) 26 U/L (13-40) Alanine Aminotransferase (ALT) 32 U/L (7-40) Alkaline Phosphatase 83 U/L (46-116) Total Protein 8.2 g/dL (5.7-8.2) Albumin 4.8 g/dL (3.2-4.8) Triglycerides Level 70 mg/dL (< 150) Cholesterol Level 202 mg/dL (< 200) LDL Cholesterol 152 mg/dL (< 100) HDL Cholesterol 54 mg/dL (40-59) Thyroid Stimulating Hormone (TSH) 1.86 uIU/mL (0.55-4.78) Other Laboratory Tests 05/24/25 04:59 Brief Hx & Hospital Course: This is a 45-year-old male with past medical history of renal stone, hypertension came to ER with a complaint of left flank pain which started around 4:00 p.m. day before admission which is 10/10 intensity, continuous dull pain and radiates to suprapubic area associated with nausea and vomiting. Patient recently discharged on 04/27/2025 from hospital due to similar symptoms. Patient is also having nausea and vomiting before came to the hospital, the vomitus contained food materials but no blood mixed. Patient currently denies any fever, chills, diarrhea, constipation, SOB, chest pain, headache, any focal weakness. Denies any recent history of trauma fall, any dietary changes or drinking alcohol. Patient stated not taking enough water for hydration. Patient scheduled for urology outpatient. Previous hospitalization: Renal stone, hypertension PSHx: Oral surgery Family history: Reviewed, noncontributory Social history: Ex-smoker, drinks occasionally, marijuana user , lives with Home medication: Valsartan Allergic history: Denies Hospital course: Patient admitted due to left ureteral calculus and moderate left-sided hydronephrosis. CT abdomen showed Obstructing distal left ureteric calculus measuring 7 mm resulting in mild hydronephrosis. UA shows: Blood 1+, RBC 138, amorphous crystals many. Kidney ultrasound showed moderate hydronephrosis. Ultrasound bladder shows bilateral ureteral jets. Patient treated conservatively during hospital stay and his symptoms significantly improved. Leukocytosis resolved and denies any acute symptoms. Urology consulted and recommended outpatient follow-up with possible stent placement and need ESWL. Examination on 05/24/2025, patient denies any abdominal pain, chest pain, SOB, constipation, diarrhea, hematuria, headache, fever or any focal weakness. Patient advised to intake fluid as tolerated and follow-up urology outpatient. Patient is hemodynamically stable for discharge. Patient has received maximum benefit from inpatient treatment. Time was given to answer patient's questions and concerns in layman terms and explained by RN. Patient verbalized understanding and agreed with treatment and follow-up. Patient was recommended to return to ER if he experiences any worsening symptoms not limited to current symptoms. Follow-up with PCP, urology , outpatient clinic [place] morning within 2 week after discharge. Medications sent to pharmacy. Patient advised to resume his home medications. Physical examination: General: Patient alert and oriented in person, place and time. Patient following commands. In moderate distress HEENT: Normocephalic, atraumatic, moist mucous membranes Respiratory/pulmonary: Clear lungs bilaterally, vesicular murmurs present in almost all lung monk, no associated crackles or wheezes. Cardiovascular: Normal heart sounds S1 and S2 with no associated murmurs Abdomen: Soft nontender, bowel sounds present all 4 quadrant Extremities: There is no peripheral edema present at the lower extremities. Peripheral Pulses: 3+ Radial (R). 3+ Radial (L). 3+ Dorsalis pedis (R). 3+ Dorsalis pedis(L) Skin: No rashes or pruritus, there is no sacral edema present at this time. Neurological: Intact cranial nerves with no focal neurologic deficits More than 23 minute spent with patient. Case discussed with patient, nurse, Dr. Gomez. Condition at Discharge: Stable Final Diagnosis/Problems List Left ureteral calculus Left-sided hydronephrosis History of nephrolithiasis Leukocytosis likely reactive Hematuria due to ureteral stone Cannabis abuse disorder Essential Hypertension Obesity BMI 38.4 Discharge Disposition: Home Discharge Instruct/Medications Follow Up/Referral: PCP Urology Outpatient clinic Wednesday morning within 2 weeks after discharge. Scheduled Famotidine (Pepcid Tablet), 1 TAB PO BID Ibuprofen Micronized (Ibuprofen), 400 MG PO TID Tamsulosin Hcl (Tamsulosin Hcl), 0.4 MG PO QPM Valsartan (Valsartan), 160 MG PO DAILY Scheduled PRN Tramadol HCl (Tramadol HCl), 50 MG PO TID PRN, (Reported) Discharge Statement: "Patient was advised to return to the ER or call 911 if any headaches, dizziness, shortness of breath, chest pain, abdominal pain, bleeding, fevers, or worsening of medical condition. Patient was counseled about treatment plan, medications, possible side effects, patientverbalized understanding. All questions were answered to the best of my ability. This discharge took greater then 30 minutes in planning, reviewing documentation, counseling the patient, and discussing with other team members." ASSESSMENT ASSESSMENT Assessment Visit Coding STANDARD RES Billing Provider: GARRISON GOMEZ MD Date of Service if different f: May 24, 2025 Common Visit Codes: 59402-QAU/OBS DISCH DAY >30min TYRA MANRIQUEZ RESIDENT May 24, 2025 09:40 GARRISON GOMEZ MD May 24, 2025 14:52
[2025-05-24] MEDS ORDERED: TRAM-626 PO (11:40)
[2025-05-24] MEDS ORDERED: IBUP1TAB4 PO (11:52)
[2025-05-24] MEDS ORDERED: FAMO20TA10 PO (11:52)
[2025-05-24 13:20] VITALS: BP 147/89; PULSE 66; RESP 19; TEMP 98.3; O2SAT 98
[2025-05-24 13:30] VITALS: BP 164/87; PULSE 70; RESP 18; TEMP 97.7; O2SAT 96
[2025-05-26 13:07] LABS: Vitamin D-2 25-Hydroxy <1.0 ng/mL (.); Vitamin D-3 25-Hydroxy 28 ng/mL (.)
== END 2025-05-24 14:34 | disposition home or self-care (01) | DRG 465 ==
LOC: ER 00:11 → OVERFLOW 01:58 → WEST WING 03:50
PROVIDERS: ADMIT Student in an Organized Health Care Education/Training Program; ATTEND Student in an Organized Health Care Education/Training Program
DX: N13.2 Hydronephrosis with renal and ureteral calculous obstruction (principal); D72.829 Elevated white blood cell count, unspecified; Z68.41 Body mass index [BMI] 40.0-44.9, adult; I10 Essential (primary) hypertension; F12.10 Cannabis abuse, uncomplicated; R31.9 Hematuria, unspecified; E66.9 Obesity, unspecified; Z87.442 Personal history of urinary calculi; Z87.891 Personal history of nicotine dependence
CPT/HCPCS: 36415; 74176; 76775; 76857; 80048; 80053; 80061; 80307; 81001; 82306; 83036; 83605; 84443; 85025; 96361; 96374; 96375; G0378; J1885; J2405